=== PATIENT | female | born 1950 | race Caucasian/White ===

== ENCOUNTER → 2017-02-08 | Outpatient (CLI) | payer MEDICARE ==
[~2017-02-08] MED LIST: KLON0.5T PO; PANT40TA2 PO; PROP80TA PO; SERT25TA PO
--- NOTE | 2017-02-08 11:46 | REP ---
Clinical: Follow up left adnexal lesion. Comparison: CT report dated Technique: Transabdominal pelvic ultrasound followed by transvaginal examination for better evaluation of the adnexa. Findings: The patient is noted to be status post hysterectomy and right oophorectomy. Left left adnexal structure measures 4.4 x 2.4 x 2.8 cm and may represent ovary with complex cyst versus mass. Bladder is unremarkable and currently measures 6.3 x 4.5 x 4.8 cm. No pelvic fluid. Impression: Limited examination demonstrates a complex cystic structure in the left adnexa measuring 4.4 x 2.4 x 2.8 cm likely representing ovary although mass lesion cannot be excluded. Consider follow-up CT with contrast for more definitive evaluation.
== END ==
LOC: M WHC 08:28
PROVIDERS: ATTEND Internal Medicine
DX: N94.89 Other specified conditions associated with female genital organs and menstrual cycle (principal)

== ENCOUNTER → 2017-03-02 | Outpatient (REF) | payer MEDICARE | LOC: M LAB REF 12:09 | PROVIDERS: ATTEND Internal Medicine | DX: R50.9 Fever, unspecified (principal); R31.9 Hematuria, unspecified ==

== ENCOUNTER 2017-03-04 08:27 | Day surgery (SDC) | payer MEDICARE ==
--- NOTE | 2017-03-03 09:02 | CR ---
DATE OF CONSULTATION: 03/02/[address] Osorio: Thank you for asking me to see Ms. Amirah Mosquera in consultation prior to her cystectomy. Ms. Mosquera is as you know a 66-year-old female past medical history of hypertension, anxiety, palpitations, who was incidentally found during a bout of diverticulitis to have an adnexal cyst. The patient reports some persistent left lower quadrant pain intermittently in nature, overall tolerable. She also reports two episodes since she last saw me of shaking. They occurred about 10 days apart. They started with nausea, developed to shaking chills and then a temperature as high as 101.7. She reports they did not last over 1 hour. She has felt well since the last bout which was 5 days ago. The patient admits that she has been more anxious. She is taking her Klonopin twice a day, looking forward to getting surgery over. She is compliant with her sertraline. She is on propranolol and does not feels that her palpitations are any worse. The patient does have recent history of diverticulitis. Bowels are back to normal. Appetite is good but she and her are trying to restrict diet with portion control and are successfully losing some weight. The patient has known osteoarthritis (OA), degenerative joint disease (DJD), intermittently flares, is presently stable. Patient has history of recurrent bronchitis uses bronchodilators. She has not needed any recently. Patient has history of gastroesophageal reflux disease (GERD). She is on pantoprazole with good control of symptoms. The patient is just recently at full activity after recent bout of diverticulitis but denies any chest pain, palpitations, syncope or presyncope. PAST MEDICAL HISTORY: 1. Anxiety/panic 2. Hysterectomy with reported right oophorectomy 1979 secondary to fibroids. 3. G2, P2. 4. Appendectomy. 5. Right shoulder lipoma excisions 1982 and 1994. 6. Osteoarthritis, degenerative joint disease left knee and lumbosacral spine with sciatica in 2012 symptomatically relieved after three epidural injections. 7. Palpitations controlled on beta blockers. 8. Irritable bowel syndrome (IBS). 9. Gastroesophageal reflux disease (GERD) per upper GI 08/1998. 10. Pulmonary nodules stable between 2004 and 2014. No further imaging felt necessary. 11. Biliary sludge per ultrasound 09/12. 12. Fatty liver. 13. Asthma / recurrent bronchitis. Pulmonary consultation 2004. 14. Vitamin D deficiency. 15. Degenerative valve disease per echo 07/11/2012. 16. Hyperglycemia. 17. Hypertension. 18. Hyperlipidemia 19. Grajeda's palsy 2015. 20. Diverticulitis 2017. 21. Essential tremor. PATIENT'S MEDICATIONS: She is on: - albuterol nebulizer as needed - Aleve 220 mg one by mouth twice daily as needed on hold for 1 week - Anusol as needed - Aspercreme as needed - baby aspirin daily but this is been on hold for a week - calcium twice daily - clobetasol as needed dermatitis - ibuprofen also on hold for a week - clonazepam 0.5 mg half to one twice daily - magnesium 250 mg daily at bedtime - meclizine as needed - Zofran as needed - pantoprazole 40 mg daily - ProAir as needed - probiotic daily - propranolol ER 80 mg at bedtime - sertraline 25 mg by mouth twice daily - Tylenol as needed - vitamin D3 5000 international units daily - Voltaren gel as needed - Zyrtec allergy daily DRUG ALLERGIES: None but she has had adverse reaction to Wellbutrin, Flonase, imipramine, Zoloft, citalopram, baclofen and pravastatin. SOCIAL HISTORY: Never smoked, rarely drinks alcohol. FAMILY HISTORY: Father had chronic obstructive pulmonary disease (COPD), congestive heart failure (CHF), hypertension and of lung cancer at 82. Mother of multiple myeloma at 74. Brother from leukemia at 66. Another brother had HIV infection. A sister had heart attack at 65. Grandparents had heart disease, diabetes and cancer. PHYSICAL EXAMINATION: Overweight female in no acute distress. Vital signs: Her blood pressure 156/68, recheck 112/60, heart rate 63. Her weight is 208, O2 sat after exertion 91%. Her body mass index (BMI) is 35. HEENT: Head is normocephalic. Neck is supple. Pupils equal, reactive to light. She does wear eyeglasses. She has scant amount of cerumen bilaterally. There is no thyromegaly, jugular venous distention (JVD) or carotid bruits. Respiratory: Clear to auscultation, resonant to percussion. Cardiovascular: Regular rate and rhythm. She does have a 3/6 systolic murmur. Breasts: Exam deferred. Abdomen: Normoactive bowel sounds, soft, nontender. No hepatosplenomegaly. Extremities: No cyanosis, clubbing or edema. Dermatologic: No new rashes, bruises. Neurologic: Alert and oriented times three. LABORATORY DATA: Normal CBC, med profile significant for a glomerular filtration rate of 45, normal liver panel, ESR slightly elevated at 24. UA: No significant pathology. Last thyroid 02/11/2017 within normal limits. IMPRESSION: Ms. Amirah Mosquera is a 66-year-old female with past medical history of hypertension, hyperglycemia, hyperlipidemia, age and family history has no signs or symptoms indicative of cardiovascular ischemia and is felt to be at low risk for cardiovascular complications from the proposed surgical intervention which can be further minimized by the followin. Hypertension. Take propranolol as usual the evening prior to surgery. 2. Hyperglycemia. Dietary advice only. 3. Hyperlipidemia. She has been intolerant of statins. When more stable will readdress. 4. Anxiety. She will take her clonazepam and sertraline the morning of surgery. 5. Gastroesophageal reflux disease. She will take her pantoprazole morning of surgery. 6. Palpitations. She will take her propranolol the evening prior to surgery. 7. Essential tremor. She will take the propranolol the evening prior to surgery. 8. Recent diverticulitis clinically cleared, still appears to be having some residual symptoms but CBC, ESR not significantly elevated and clinically she is completely asymptomatic today. Thank you very much for this consultation. Please call with questions or concerns.
[~2017-03-04] VITALS: Ht 167.6 cm; Wt 94.8 kg
[~2017-03-04 08:27] MED LIST changes: +KETOROLAC 60 MG/2 ML VIAL (J1885) As Ordered ONE; +LIDOCAINE 2% INJ 100 MG/5 ML SDV (FOR ANES.) As Ordered ONE; +ONDANSETRON 4MG/2ML VIAL (J2405) As Ordered ONE; +PROPOFOL 200 MG/20 ML VIAL As Ordered ONE; +ROCURONIUM BROMIDE 50 MG/5 ML VIAL/SYRINGE As Ordered ONE; +dexameTHASONE 4 MG/ML 1ML VIAL (J1100) As Ordered ONE
[2017-03-04] MEDS ORDERED: LIDOCAINE 1% SDV 5 ML VIAL SQ ONE (09:00)
[2017-03-04] MEDS ORDERED: LR 1,000 ML IV SCH ×2 (09:00→14:30)
[2017-03-04] MEDS ORDERED: LR 1,000 ML IV ONE (09:00)
[2017-03-04] MEDS ORDERED: ROCURONIUM BROMIDE 50 MG/5 ML VIAL/SYRINGE As Ordered ONE ×2 (11:06→13:11)
[2017-03-04] MEDS ORDERED: fentaNYL 250 MCG/5 ML INJECTION (J3010) As Ordered ONE (11:06)
[2017-03-04] MEDS ORDERED: MIDAZOLAM INJ 2 MG/2 ML VIAL (J2250) As Ordered ONE (11:06)
[2017-03-04] MEDS ORDERED: SUGAMMADEX SODIUM 500 MG/5 ML VIAL (BRIDION) As Ordered ONE (13:39)
[2017-03-04] MEDS ORDERED: HYDROmorphone HCL 2 MG/ML 1ML VIAL (J1170) As Ordered ONE (13:39)
[2017-03-04] MEDS ORDERED: ePHEDrine SULFATE 25 MG/5 ML(5MG/ML) SYRINGE As Ordered ONE (13:42)
[2017-03-04] MEDS ORDERED: METOCLOPRAMIDE INJ 10MG/2ML VIAL (J2765) As Ordered ONE (14:21)
[2017-03-04] MEDS ORDERED: IBUPROFEN 600 MG TAB PO PRN (14:30)
[2017-03-04] MEDS ORDERED: METOCLOPRAMIDE INJ 10MG/2ML VIAL (J2765) IV PRN (14:30)
[2017-03-04] MEDS ORDERED: PERCOCET 5MG/325MG TAB PO PRN (14:30)
[2017-03-04] MEDS ORDERED: ALBUTEROL 6.7GM INHALER **FOR ANES. CART/OMNICELL ONLY As Ordered ONE (14:30)
[2017-03-04] MEDS ORDERED: ONDANSETRON 4MG/2ML VIAL (J2405) IV PRN (14:30)
[2017-03-04] MEDS ORDERED: fentaNYL 100 MCG/2 ML INJECTION (J3010) IV PRN (14:30)
[2017-03-04] MEDS ORDERED: MEPERIDINE INJ 25 MG/ML VIAL (J2175) IV PRN (14:30)
[2017-03-04] MEDS ORDERED: NORCO, ANEXSIA 5/325MG TABLET (HYDROcodone/ACETAMINOPHEN) PO PRN (14:30)
[2017-03-04] MEDS ORDERED: PROMETHAZINE INJ 25 MG/ML VIAL (J2550) IV PRN ×2 (15:15→17:15)
[2017-03-04] MEDS ORDERED: LR 500 ML IV SCH (15:15)
[2017-03-04] MEDS ORDERED: ALBUTEROL 90 MCG/ACT 8GM HFA INHALER INH PRN (17:15)
[2017-03-04 18:45] VITALS: BP 148/71
[2017-03-04] MEDS ORDERED: PROPRANOLOL 80 MG LA CAP PO SCH (21:00)
[2017-03-04 21:50] VITALS: BP 130/70
[2017-03-04] MEDS: LR 1,000 ML IV SCH (21:50)
[2017-03-04] MEDS: SERTRALINE HCL 25 MG TABLET PO SCH (21:50)
[2017-03-04 22:00] VITALS: BP 130/77
[2017-03-05] VITALS: BP 125/61
[2017-03-05 04:00] VITALS: BP 125/63
[2017-03-05] MEDS: LR 1,000 ML IV SCH ×2 (05:24→06:30)
[2017-03-05 06:30] LABS: MEAN CORPUSCULAR HEMOGLOBIN 29.1 pg (27.0-33.0); MEAN CORPUSCULAR HGB CONC 33.5 g/dl (32.0-36.5); MEAN CORPUSCULAR VOLUME 86.8 fl (80.0-96.0); RED CELL DISTRIBUTION WIDTH 13.2 % (11.5-14.5); WHITE BLOOD COUNT 14.1 K/mm3 (4.0-10.0)
[2017-03-05] MEDS: SERTRALINE HCL 25 MG TABLET PO SCH (08:38)
[2017-03-05] MEDS ORDERED: CETIRIZINE (ZyrTEC) 10 MG TAB PO SCH (09:00)
[2017-03-05] MEDS ORDERED: PANTOPRAZOLE 40MG TAB (PROTONIX) PO SCH (09:00)
[2017-03-05 10:00] VITALS: BP 130/76
--- NOTE | 2017-03-06 07:37 | RO ---
DATE OF PROCEDURE: 03/04/2017 PREOPERATIVE DIAGNOSIS: Growing left ovarian cyst. POSTOPERATIVE DIAGNOSIS: Left ovarian remnant with tiny cyst and extensive involved adhesions, likely related to the patient's diverticular disease. PROCEDURE: Laparoscopic lysis of extensive marked and considerably more involved than usual adhesions and removal of left ovarian remnant and cyst, which drained when we removed it. SURGEON: Dr. Sofi Osorio SITE ACQUISITION MANAGER: None. ANESTHESIA: General endotracheal anesthesia. DESCRIPTION OF PROCEDURE: Amirah was brought to the operating room where sufficient general endotracheal anesthesia was induced, and she was prepped, draped and positioned in the usual sterile fashion. We put a Sanchez in for backfilling because we knew she had a history of diverticular disease and some evidence of adhesions, and she had already taken some Pyridium and had taken a little bit extra antibiotic to protect the bowel. A sponge on a stick was placed. The patient is already status post hysterectomy, which is reported as hysterectomy and right salpingo-oophorectomy. We then turned our attention to the umbilicus with a transverse semilunar incision made below the umbilicus. Sharp and blunt dissection continued through the subcutaneous tissues to the level of the rectus fascia, which was transversely incised, secured with #0 Vicryl retention sutures and the peritoneum entered under direct visualization, and the Antonio cannula placed in an open laparoscopic technique. Visualization of the peritoneum showed that there were extensive involved omental adhesions and bowel adhesions. Even just the smooth manipulator caused portions of bowel to just sort of fall off their adhesions with little circular adhesions to other things, which really looked quite distinctly diverticular. Also, the omentum is flatly adherent to the anterior abdominal wall. Initially, we backfilled the bladder and moved the vaginal manipulator and could not even see them, so with careful dissection through the operative scope through the umbilical port, we were able to get a window on the appropriate side of the omentum, without injuring bowel, in the right upper quadrant. Working with the scope through that, we were able to take down, very carefully and tediously, the omentum, using the Enseal and at times a grasper through the umbilical port and finally we were able to free the vast majority of that. There was still a small amount of omentum adherent to the anterior abdominal wall in the right lower quadrant, and there was some omentum adherent to the peritoneum just to the right of midline cephalad to the bladder. There are pictures of all that dissection taken. We then very carefully using cold scissors as appropriate, using the Enseal as needed, continued the dissection to get to the left pelvic sidewall. There were several loops of bowel adherent there, and these we just took down with cold scissors and using the suction professional healthcare representative, tried to visualize that area, and, of course, using the graspers to very gently give slight traction so we could get down to appropriate area. Could not initially see any ovary. We were, having freed that up and using the backfilling in the bladder to get enough of the omentum off, able to identify the location of the bladder. We could clearly see the pelvic inlet at the pelvic brim, and so we had an idea where the infundibulopelvic ligament for the ovary had to start. We carefully dissected that area free and encountered a very small ovarian remnant just under some dense, dense intestinal adhesions that we just had to take down millimeter by millimeter in this region. Then, having found this little area that appeared to be ovarian remnant, we were then able to elevate that and continue to dissect off the bowel. We did find a small, maybe 1 or 2 cm cystic lesion. This ruptured as we dissected it out. I do not think there is any significant portion of tube, and there is just a tiny area of ovary-like tissue. Having finally freed this, we very carefully moved the bowel far enough away to use the Enseal to free this from the sidewall. We did not have any evidence of the Pyridium that the patient had taken or evidence that we had injured ureter. In fact, the ovary, if anything, was adherent a little higher on the sidewall and they sometimes are, so we did not have any evidence of ureteral injury. The bowel was very inflamed with this continued evidence of diverticular disease, but that was present before the start of the case. We were able to free up this tissue, it was tiny; we were able to just pull it out with the scope and there was no other tissue there. We had to sort of go extraperitoneally in some areas to keep the bowel protected, but, again, there was no evidence of ureteral injury. There was no other persistent ovarian tissue that we could identify, and we went ahead and ended the case, let the CO2 escape, removed the instruments, closed the fascial wounds in the right upper quadrant and the umbilicus with #0 Vicryl at the fascia and then #3-0 Vicryl. There was a left-sided 5 mm port, my mistake for not dictating that earlier, and the skin at all three wounds was closed with #3-0 Vicryl in a subcuticular stitch and dry sterile dressings were then applied. Estimated blood loss for the procedure: Maybe 25 mL. Fluid replacement was crystalloid. Complications: None but she did have an unusually marked amount of adhesions, and that was primarily the main work of the case. Condition and Disposition: Amirah tolerated the procedure well and was recovering in the recovery room in good condition.
== END 2017-03-05 11:00 | disposition home or self-care (01) ==
LOC: M SDC 08:27 → M MS5PR 18:30 → M SDC 03-05 11:00
PROVIDERS: ATTEND Obstetrics & Gynecology
DX: N83.202 Unspecified ovarian cyst, left side (principal); K57.32 Diverticulitis of large intestine without perforation or abscess without bleeding; R25.1 Tremor, unspecified; R01.1 Cardiac murmur, unspecified; K21.9 Gastro-esophageal reflux disease without esophagitis; M12.9 Arthropathy, unspecified; M54.9 Dorsalgia, unspecified; F41.9 Anxiety disorder, unspecified; Z79.899 Other long term (current) drug therapy; Z90.710 Acquired absence of both cervix and uterus; Z78.0 Asymptomatic menopausal state; Z98.51 Tubal ligation status
CPT/HCPCS: 36415; 58660; 58661; 85027; 88305; 96374; 96375; J1100; J1885; J2250; J2405; J2765; J3010

== ENCOUNTER → 2017-03-08 | Outpatient (REF) | payer MEDICARE ==
[~2017-03-08] MED LIST changes: -KETOROLAC 60 MG/2 ML VIAL (J1885) As Ordered ONE; -LIDOCAINE 2% INJ 100 MG/5 ML SDV (FOR ANES.) As Ordered ONE; -ONDANSETRON 4MG/2ML VIAL (J2405) As Ordered ONE; -PROPOFOL 200 MG/20 ML VIAL As Ordered ONE; -ROCURONIUM BROMIDE 50 MG/5 ML VIAL/SYRINGE As Ordered ONE; -dexameTHASONE 4 MG/ML 1ML VIAL (J1100) As Ordered ONE
== END ==
LOC: M LAB REF 18:03
PROVIDERS: ATTEND Internal Medicine
DX: M25.50 Pain in unspecified joint (principal)

== ENCOUNTER → 2017-06-25 | Outpatient (CLI) | payer MEDICARE ==
--- NOTE | 2017-06-25 11:23 | REPMRS ---
Patient History The patient states she had a clinical breast exam in Patient is postmenopausal. Family history of breast cancer in maternal aunt at age 50 or over. Digital Woman Screen Mammo: June 25, 2017 - Exam #: [id number] Bilateral CC and MLO view(s) were taken. Technologist: Victoria Serrano, Technologist Prior study comparison: June 09, 2016, bilateral digital mammo screening bilat, performed at [facility]. June 13, 2015, left breast digital mammo diagnostic unilateral, performed at [facility]. FINDINGS: There are scattered fibroglandular densities. There is a fairly symmetric fibroglandular pattern in both breasts. There has been no interval development of masses, areas of architectural distortion or clusters of microcalcifications typical of malignancy. ASSESSMENT: BI-RADS/ACR category 2 mammogram. Benign finding(s). Recommendation Routine screening mammogram of both breasts in 1 year (for women over age 40). This mammogram was interpreted with the aid of an FDA-approved computer-aided dectection system. Electronically Signed By: Wisam Phillips MD 06/25/17 1120
== END ==
LOC: M WHC 09:45
PROVIDERS: ATTEND Internal Medicine
DX: Z12.31 Encounter for screening mammogram for malignant neoplasm of breast (principal); Z78.0 Asymptomatic menopausal state

== ENCOUNTER → 2017-11-23 | Outpatient (CLI) | payer MEDICARE | LOC: M WUC 16:00 | DX: M25.78 Osteophyte, vertebrae (principal); M12.88 Other specific arthropathies, not elsewhere classified, other specified site; M43.16 Spondylolisthesis, lumbar region; M54.31 Sciatica, right side | CPT/HCPCS: 72110 ==

== ENCOUNTER → 2018-03-14 | Outpatient (CLI) | payer MEDICARE | LOC: M SLEEP HO 12:33 | DX: G47.33 Obstructive sleep apnea (adult) (pediatric) (principal) ==

== ENCOUNTER → 2018-03-30 | Outpatient (CLI) | payer MEDICARE | LOC: M SLEEP 19:42 | DX: G47.33 Obstructive sleep apnea (adult) (pediatric) (principal) | CPT/HCPCS: 95811 ==

== ENCOUNTER → 2018-06-27 | Outpatient (CLI) | payer MEDICARE | LOC: M WHC 10:30 | DX: Z12.31 Encounter for screening mammogram for malignant neoplasm of breast (principal); M85.80 Other specified disorders of bone density and structure, unspecified site; Z78.0 Asymptomatic menopausal state; Z92.89 Personal history of other medical treatment | CPT/HCPCS: 77067 ==

== ENCOUNTER → 2019-05-10 | Outpatient (CLI) | payer MEDICARE ==
[~2019-05-10] MED LIST changes: -PANT40TA2 PO; +PANT40TA3 PO; -SERT25TA PO; +SERT25TA85 PO
--- NOTE | 2019-05-10 13:46 | REP ---
Chest x-ray: Two views. History: Short of breath. Findings: The lungs are well inflated and clear. The pleural angles are sharp. Heart size is normal. Pulmonary vasculature is not increased. The thoracic aorta somewhat tortuous. There are mild degenerative changes in the thoracic spine. Impression: No active disease. No infiltrate seen. Electronically Signed by Collin Wagner MD 05/10/2019 01:38 P
== END ==
LOC: M WUC 10:54
PROVIDERS: ATTEND Internal Medicine
DX: R06.02 Shortness of breath (principal)

== ENCOUNTER → 2019-07-03 | Outpatient (CLI) | payer MEDICARE ==
--- NOTE | 2019-07-03 15:38 | REPMRS ---
Patient History The patient states she had a clinical breast exam in 2018.Family history of breast cancer at age 50 or over in maternal aunt. Benign lumpectomy of the right breast. No Hormone Replacement Therapy 3D TOMOSYNTHESIS WAS PERFORMED. [facility] lifetime risk for breast cancer is 6.4%. Digital Woman Screen Mammo: July 03, 2019 - Exam #: [id number] Bilateral CC and MLO view(s) were taken. Technologist: Adrienne Maria, Technologist Prior study comparison: June 27, 2018, bilateral digital woman screen mammo performed at [facility]. June 25, 2017, digital woman screen mammo performed at [facility]. FINDINGS: There are scattered fibroglandular densities. There has been no change in the appearance of the mammogram from the prior studies. There is a mild amount of residual fibroglandular tissue which is fairly symmetric. There is no interval development of dominant mass, architectural distortion, or clustered microcalcification suggestive of malignancy. Assessment: BI-RADS/ACR category 1 mammogram. Negative Mammogram. Recommendation Routine screening mammogram in 1 year (for women over age 40). This mammogram was interpreted with the aid of an FDA-approved computer-aided dectection system. Electronically Signed By: Wisam Phillips MD 07/03/19 0441
== END ==
LOC: M WHC 14:20
PROVIDERS: ATTEND Internal Medicine
DX: Z12.31 Encounter for screening mammogram for malignant neoplasm of breast (principal); Z80.3 Family history of malignant neoplasm of breast

== ENCOUNTER → 2020-01-29 | Outpatient (CLI) | payer MEDICARE ==
--- NOTE | 2020-01-29 13:04 | REP ---
LUMBAR SPINE SERIES: Five views. HISTORY: Pain. COMPARISON STUDY: November 23, 2017. FINDINGS: Five views of the lumbar spine demonstrate a dextroconvex lumbar curvature. Degenerative spondylosis changes are noted. Lumbar vertebral body heights are preserved. There is vacuum phenomenon in the narrowed L5-S1, L4-5, and L3-4 discs. Degenerative disc narrowing is seen at L2-3 as well. Anterior osteophyte formation is seen at these levels. There is sclerosis and hypertrophy of the facets at L4-5 and L5-S1 bilaterally. Sacrum and SI joints are intact. These findings are unchanged when compared with the November 23, 2017 study. IMPRESSION: Degenerative spondylosis changes. Stable exam from comparison study. Electronically Signed by Collin Wagner MD 01/29/2020 05:04 P
== END ==
LOC: M WUC 09:57
PROVIDERS: ATTEND Internal Medicine
DX: M54.5 Low back pain (principal); M47.816 Spondylosis without myelopathy or radiculopathy, lumbar region

== ENCOUNTER → 2020-06-03 | Outpatient (CLI) | payer MEDICARE ==
[~2020-06-03] MED LIST changes: +PANT40TA29 PO; -PANT40TA3 PO
--- NOTE | 2020-06-06 00:06 | ECWPNPC ---
PATIENT NAME: KATH HUMPHREYS : 1950 GENDER: FEMALE VISIT DATE: 06/03/2020 DISCHARGE DATE: 06/03/20937 VISIT LOCKED DATE TIME: PHYSICIAN: BOB WESTBROOK RESOURCE: BOB WESTBROOK REASON FOR APPOINTMENT 1. BACK HISTORY OF PRESENT ILLNESS GENERAL: 70 Y/O FEMALE REFERRED BY PRIMARY CARE,DR HAWKINS,TO EVALUATE CHRONIC LOW BACK PAIN.LONG HISTORY OF CHRONIC LOW BACK PAIN.PAIN IS LOCATED ACROSS LOW BACK WITH RADIATION INTO LEFT BUTTOCK.HAS HAD RECENT XRAY OF LEFT HIP PER DR HAWKINS ORDER AND HAS APPOINTMENT TO HAVE THIS REVIEWED TODAY.PAIN IS AGGREVATED BY GOING FROM SITTING TO STANDING.HAS TRIALED CHIROPRACTIC AND MASSAGE THERAPY OVER THE YEARS WITH SOME TEMPORARY IMPROVEMENT.LOOKING FOR ALTERNATIVES TO TREAT PAIN.DENIES RECENT ILLNESS OR WEIGHT LOSS.DENIES BOWEL OR BLADDER INCONTINENCE. - - -. FALL RISK SCREENING: SCREENING :NO FALLS REPORTED IN THE LAST YEAR PAIN SCREENING: PATIENT HAS A COMPLAINT OF ACUTE OR CHRONIC PAIN :YES LOCATION OF PAIN:LOW BACK, LEFT HIP INTENSITY OF PAIN (SCALE OF 1 TO 10):8 WHAT DOES YOUR PAIN FEEL LIKE:CONTINOUS, THROBBING DURATION: SITTING IT STOPS" PAIN IS INCREASED BY:ACTIVITIES, PROLONGED STANDING PAIN IS DECREASED BY:SITTING NURSING NOTE: - - -. PAIN CENTER INTAKE QUESTIONS: DO YOU HAVE A HISTORY OF MRSA? :NO DO YOU TAKE A BLOOD THINNERS? :NO DO YOU HAVE ANY BLEEDING DISORDERS? :NO ANY NEW NUMBNESS OR WEAKNESS IN YOUR LEGS OR ARMS? :NO ANY PACEMAKER,DEFIBRILLATOR, OR DORSAL COLUMN STIMULATOR? :NO DO YOU HAVE ANY RASHES OR OPEN SORES? :NO ARE YOU ALLERGIC TO IV DYE? :NO ARE YOU DIABETIC? :NO ANY NEW PROBLEMS WITH YOUR MEDICATIONS? :NO HAVE YOU RECEIVED A VACCINE IN THE PAST 30 DAYS? :NO DO YOU PLAN TO RECEIVE A VACCINE IN THE NEXT 21 DAYS? :NO DO YOU NEED ANY PRESCRIPTION? :NO DO YOU TAKE ANY IMMUNOSUPPRESSIVE MEDICATIONS? :NO CURRENT MEDICATIONS TAKING BUSPIRONE HCL 15 MG TABLET 1 TABLET ORALLY TWICE A DAY TAKING KLONOPIN 0.5 MG TABLET 1 TABLET AT BEDTIME ORALLY BID TAKING PROPRANOLOL HCL ER 60 MG CAPSULE EXTENDED RELEASE 1 CAPSULE ORALLY ONCE A DAY TAKING PANTOPRAZOLE SODIUM 20 MG TABLET DELAYED RELEASE 1 TABLET ORALLY ONCE A DAY TAKING SERTRALINE HCL 25 MG TABLET 1 TABLET ORALLY BID TAKING TYLENOL 8 HOUR 650 MG TABLET EXTENDED RELEASE 2 TABLETS NEEDED ORALLY EVERY 8 HRS TAKING VITAMIN D 1000 UNIT CAPSULE 1 CAPSULE ORALLY ONCE A DAY MEDICATION LIST REVIEWED AND RECONCILED WITH THE PATIENT PAST MEDICAL HISTORY PANIC ATTACKS/ ANXIEYY CHRONIC PAIN GERD OSTEO ARTHRITIS SLEEP APNEA ALLERGIES N.K.D.A. SURGICAL HISTORY C SECTION 1971 1973 TOTAL HYSTERECTOMY REMOVAL OF LIPOMAS FAMILY HISTORY FATHER: 85 YRS, DIAGNOSED WITH HYPERTENSION MOTHER: 72 YRS SON(S): ALIVE DAUGHTER(S): ALIVE MOTHER OF MULTIPLE MYLOMA. SOCIAL HISTORY GENERAL: TOBACCO USE ARE YOU A:NONSMOKER LATEX QUESTIONNAIRE LATEX ALLERGY : HAVE YOU EVER DEVELOPED ANY TYPE OF REACTION AFTER HANDLING LATEX PRODUCTS SUCH RUBBER GLOVES, CONDOMS, DIAPHRAGMS, BALLOONS, SOCKS, OR UNDERWEAR?NO ALCOHOL SCREENING DID YOU HAVE A DRINK CONTAINING ALCOHOL IN THE PAST YEAR?YES HOW OFTEN DID YOU HAVE A DRINK CONTAINING ALCOHOL IN THE PAST YEAR?TWO TO FOUR TIMES A MONTH (2 POINTS) HOW MANY DRINKS DID YOU HAVE ON A TYPICAL DAY WHEN YOU WERE DRINKING IN THE PAST YEAR?1 OR 2 (0 POINTS) POINTS2 INTERPRETATIONNEGATIVE RECREATIONAL DRUG USE DRUG USE?NO PATIENT DENIES ABUSE OR MISSUSED OF ANY MEDICATION DENIES ANY PAST HISTORY OR CURRENT USE OF RECREATIONAL DRUG USE CAFFEINE CAFFEINE USE?YES HOW OFTEN AND HOW MUCH? 1/DAY AMISH AMISH [employer] LANGUAGE LANGUAGES SPOKEN:SLOVENIAN EDUCATION LEVEL OF EDUCATION:HIGH SCHOOL LEARNING BARRIERS / SPECIAL NEEDS BARRIERS TO LEARNING? 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 HOSPITALIZATION/MAJOR DIAGNOSTIC PROCEDURE NO HOSPITALIZATION HISTORY. REVIEW OF SYSTEMS CONSTITUTIONAL: ANY RECENT FEVER NO . CHILLS NO . WEIGHT CHANGE OF UNKNOWN REASONS NO . MUSCULOSKELETAL: ANY UNUSUAL JOINT PAIN OR SWELLING NOT MENTIONED NO . SYSTEMIC LUPUS NO . ANY NEUROMUSCULAR DISORDER NOT MENTIONED NO . LYME DISEASE NO . GASTROENTEROLOGY: ANY NEW CHANGE IN BOWEL CONTROL? NO . HISTORY OF LIVER DISORDER NOT MENTIONED NO . HISTORY OF UNUSUAL ABDOMINAL PAIN OR CRAMPING NOT MENTIONED NO . NO CONSTIPATION. GENITOURINARY: ANY NEW CHANGE IN BLADDER CONTROL? NO . ANY RENAL/KIDNEY CONDITON NOT MENTIONED NO . NEUROLOGY: HISTORY OF TBI NOT MENTIONED NO . OTHER NEW NUMBNESS OR PAIN PATTERNS NOT MENTIONED NO . NEW ONSET DIZZINESS OR NEUROLOGICAL CHANGES NOT MENTIONED NO . HISTORY OF SEVERE HEADACHES NOT MENTIONED NO . HISTORY OF STROKE OR NEUROLOGICAL DISORDER NOT MENTIONED NO . CARDIOLOGY: HEART SURGERY NO . CONGESTIVE HEART FAILURE/FLUID OVERLOAD NOT MENTIONED NO . HISTORY OF CHEST PAIN,IRREGULAR HEART BEAT NOT MENTIONED NO . RESPIRATORY: SHORTNESS OF BREATH ON EXERTION, WHEEZES, UNUSUAL COUGH NOT MENTIONED NO . ENDOCRINOLOGY: ADRENAL GLAND OR THYROID DISORDERS NOT MENTIONED NO . UNUSUAL URINATION, DIZZINESS OR LETHARGY NOT MENTIONED NO . EXAMINATION GENERAL EXAMINATION: GENERALNO ACUTE DISTRESS, WELL NOURISHED AND HYDRATED. PSYCHAPPROPRIATE MOOD AND AFFECT . FACE:UNREMARKABLE. NECK:NO LYMPHADENOPATHY, SUPPLE, . LUNGS:CLEAR TO AUSCULTATION BILATERALLY, NO WHEEZES, RHONCHI, RALES. HEART:NO MURMURS, REGULAR RATE AND RHYTHM. LUMBAR: MUSCLE STRENGTH TESTING 5/5 BILATERAL LOWER EXTREMITIES POSITIVE SIJ TENDERNESS BILATERALLY. ASSESSMENTS SACROILIAC JOINT PAIN - M53.3 (PRIMARY) TREATMENT SACROILIAC JOINT PAIN [facility] MRI LUMBAR W/O CONTRAST (CPT 05921)[id number] PROCEDURE CODES FA211 ESTABILISHED PATIENT [facility] CHARGE DISPOSITION & COMMUNICATION FOLLOW UP 6 WEEKS (REASON: REVIEW MRI L/S SPINE) ELECTRONICALLY SIGNED BY SHIMA JUAREZ ON 06/05/2020 AT 02:40 PM EDT DISCLAIMER : THIS IS A VISIT SUMMARY EXTRACTED FROM THE [facility] CHART. IT IS NOT A COPY OF THE [facility] PROGRESS NOTE. IVÁN
== END ==
LOC: M PAIN 08:30
PROVIDERS: ATTEND Nurse Practitioner Family
DX: M53.3 Sacrococcygeal disorders, not elsewhere classified (principal); F41.0 Panic disorder [episodic paroxysmal anxiety]; G89.29 Other chronic pain; K21.9 Gastro-esophageal reflux disease without esophagitis; G47.30 Sleep apnea, unspecified; Z79.899 Other long term (current) drug therapy

== ENCOUNTER → 2020-06-12 | Outpatient (CLI) | payer MEDICARE ==
--- NOTE | 2020-06-12 09:59 | REPMRS ---
Patient History The patient states she had a clinical breast exam in May 2020. Family history of breast cancer at age 50 or over in maternal aunt. Benign lumpectomy of the right breast. No Hormone Replacement Therapy 3D TOMOSYNTHESIS WAS PERFORMED. [facility] lifetime risk for breast cancer is 6.1%. Volpara breast density a. Digital Woman Screen Mammo: June 12, 2020 - Exam #: [id number] Bilateral CC and MLO view(s) were taken. Technologist: RT Alex Prior study comparison: July 03, 2019, bilateral digital woman screen mammo performed at [facility]. June 27, 2018, bilateral digital woman screen mammo performed at [facility]. FINDINGS: There are scattered fibroglandular densities. There has been no change in the appearance of the mammogram from the prior studies. There is a mild amount of residual fibroglandular tissue which is fairly symmetric. There is no interval development of dominant mass, architectural distortion, or clustered microcalcification suggestive of malignancy. Assessment: BI-RADS/ACR category 1 mammogram. Negative Mammogram. Recommendation Routine screening mammogram in 1 year (for women over age 40). This mammogram was interpreted with the aid of an FDA-approved computer-aided dectection system. Electronically Signed By: Wisam Phillips MD 06/12/20 0958
== END ==
LOC: M WHC 08:24
PROVIDERS: ATTEND Internal Medicine
DX: Z12.31 Encounter for screening mammogram for malignant neoplasm of breast (principal)

== ENCOUNTER → 2020-06-13 | Outpatient (CLI) | payer MEDICARE ==
--- NOTE | 2020-06-13 12:46 | REP ---
INDICATION: SACROILIAC JOINT PAIN FILE ROOM. COMPARISON: Comparison MRI study May 30, 2013. Comparison radiographs January 29, 2020.. TECHNIQUE: Sagittal and axial T1 and T2-weighted scans are acquired in the usual fashion with and without fat saturation. Sequences include spin echo, turbo spin-echo, and STIR imaging sequences. FINDINGS: There is some straightening of the normal lumbar lordosis. Vertebral body heights are preserved. There are reactive marrow changes associated with degenerative disc disease at each level from L2 through L5. The tip of the conus medullaris is normal in position and appearance at the T12-L1. No extra vertebral abnormality is appreciated. Axial and sagittal images at the L1-L2 level demonstrate mild diffuse disc bulging indenting the ventral margin of the thecal sac. There is no spinal stenosis. No foraminal narrowing is seen. At L2-L3, there is a degenerative disc disease with disc space narrowing. A left posterior and left foraminal disc protrusion is noted indenting the left ventral margin of the thecal sac and contributing to mild neural foraminal narrowing on the left. This contacts the exiting left lumbar root. No spinal stenosis. At L3-L4, there is degenerative disc narrowing. A disc osteophyte complex is seen in the left posterior and left foraminal region producing neural foraminal narrowing on the left. At L4-5, there is degenerative disc disease. Diffuse posterior disc bulging and osteophytic ridging is seen. In combination with ligamentum flavum and facet hypertrophy, there is mild to moderate central canal stenosis at L4-5. There is right-sided neural foraminal narrowing from facet hypertrophy and discogenic spurring. There is some facet hypertrophy encroaching on the left neural foramen. The midline AP dimension of the thecal sac at L4-5 is 11.6 mm. There is right to left thecal sac narrowing from facet and ligamentum flavum hypertrophy. At L5-S1, there is facet hypertrophy as well. Diffuse disc bulging and osteophytic ridging is seen. There is right-sided neural foraminal narrowing due to discogenic spurring and facet hypertrophy mild in degree. IMPRESSION: Multilevel degenerative disc and osteoarthritic facet disease. Dominant abnormality is mild to moderate central canal stenosis at L4-5. There are left posterior and left foraminal disc protrusions at L3-4 and L2-3. Right-sided foraminal narrowing is noted at L5-S1. <Electronically signed by Juan Wagner > 06/13/20 0758
== END ==
LOC: M RAD 10:27
PROVIDERS: ATTEND Nurse Practitioner Family
DX: M53.3 Sacrococcygeal disorders, not elsewhere classified (principal)

== ENCOUNTER → 2020-07-12 | Outpatient (CLI) | payer MEDICARE ==
--- NOTE | 2020-07-16 00:02 | ECWPNPC ---
PATIENT NAME: KATH HUMPHREYS : 1950 GENDER: FEMALE VISIT DATE: 07/12/2020 DISCHARGE DATE: 07/12/20 1126 VISIT LOCKED DATE TIME: PHYSICIAN: BOB WESTBROOK RESOURCE: BOB WESTBROOK REASON FOR APPOINTMENT 1. REVIEW MRI/INCREASED PAIN HISTORY OF PRESENT ILLNESS GENERAL: HERE FOR FOLLOW-UP OF CHRONIC LEFT LOW BACK PAIN. MRI OF LS SPINE IS REVIEWED WITH PATIENT TODAY THAT I HAD ORDERED AT HER INITIAL CONSULT. SHOWING CONDITION UNCHANGED FROM HER PREVIOUS MRI. SHOWING MILD TO MODERATE SPINAL STENOSIS AT L5-S1. 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 DISCUSSED AT LENGTH PROCEDURES AVAILABLE TO TREAT THIS HERE AT OUR [facility]. THIS INCLUDED LEFT SACROILIAC JOINT BLOCK AND LEFT LUMBAR FACET BLOCK. PATIENT WOULD LIKE TO RESEARCH THIS MORE BEFORE DOING INJECTIONS. I REVIEWED POTENTIAL INCREASED RISK FOR IMMUNE SUPPRESSION FOR 7-10 DAYS POST STEROID INJECTION. PATIENT WOULD LIKE TO WAIT A BIT TO CONSIDER THIS.-. FALL RISK SCREENING: SCREENING :ONE FALL WITHOUT INJURY IN THE PAST YEAR PAIN SCREENING: PATIENT HAS A COMPLAINT OF ACUTE OR CHRONIC PAIN :YES LOCATION OF PAIN:LOW BACK, LEFT HIP INTENSITY OF PAIN (SCALE OF 1 TO 10):9 WHAT DOES YOUR PAIN FEEL LIKE:ACHING, SHARP DURATION:INTERMITTENT PAIN IS INCREASED BY:ACTIVITIES PAIN IS DECREASED BY:SITTING TREATMENT/MEDICATIONS USED TO MANAGE PAIN:OTC PAIN RELIEVERS LEVEL OF RELIEF FROM PAIN TREATMENTS IN THE PAST:100% SITTING PAIN HAS INTERFERED WITH THE FOLLOWING:BATHING/DRESSING, WALKING ABILITY, HOUSEWORK, TRANSPORTATION, TOILETING NURSING NOTE: -. PAIN CENTER INTAKE QUESTIONS: DO YOU HAVE A HISTORY OF MRSA? :NO DO YOU TAKE A BLOOD THINNERS? :NO DO YOU HAVE ANY BLEEDING DISORDERS? :NO ANY NEW NUMBNESS OR WEAKNESS IN YOUR LEGS OR ARMS? :NO ANY PACEMAKER,DEFIBRILLATOR, OR DORSAL COLUMN STIMULATOR? :NO DO YOU HAVE ANY RASHES OR OPEN SORES? :NO ARE YOU ALLERGIC TO IV DYE? :NO ARE YOU DIABETIC? :NO ANY NEW PROBLEMS WITH YOUR MEDICATIONS? :NO HAVE YOU RECEIVED A VACCINE IN THE PAST 30 DAYS? :NO DO YOU PLAN TO RECEIVE A VACCINE IN THE NEXT 21 DAYS? :NO DO YOU NEED ANY PRESCRIPTION? :NO DO YOU TAKE ANY IMMUNOSUPPRESSIVE MEDICATIONS? :NO IS THERE A CHANCE YOU COULD BE ? :NO ARE YOU BREAST FEEDING? :NO CURRENT MEDICATIONS TAKING BUSPIRONE HCL 15 MG TABLET 1 TABLET ORALLY TWICE A DAY TAKING KLONOPIN 0.5 MG TABLET 1 TABLET AT BEDTIME ORALLY BID TAKING PROPRANOLOL HCL ER 60 MG CAPSULE EXTENDED RELEASE 1 CAPSULE ORALLY ONCE A DAY TAKING PANTOPRAZOLE SODIUM 20 MG TABLET DELAYED RELEASE 1 TABLET ORALLY ONCE A DAY TAKING SERTRALINE HCL 25 MG TABLET 1 TABLET ORALLY BID TAKING TYLENOL 8 HOUR 650 MG TABLET EXTENDED RELEASE 2 TABLETS NEEDED ORALLY EVERY 8 HRS TAKING VITAMIN D 1000 UNIT CAPSULE 1 CAPSULE ORALLY ONCE A DAY MEDICATION LIST REVIEWED AND RECONCILED WITH THE PATIENT PAST MEDICAL HISTORY PANIC ATTACKS/ ANXIEYY CHRONIC PAIN GERD OSTEO ARTHRITIS SLEEP APNEA ALLERGIES N.K.D.A. SURGICAL HISTORY C SECTION 1971 1973 TOTAL HYSTERECTOMY REMOVAL OF LIPOMAS FAMILY HISTORY FATHER: 85 YRS, DIAGNOSED WITH HYPERTENSION MOTHER: 72 YRS SON(S): ALIVE DAUGHTER(S): ALIVE MOTHER OF MULTIPLE MYLOMA. SOCIAL HISTORY GENERAL: TOBACCO USE ARE YOU A:NONSMOKER LATEX QUESTIONNAIRE LATEX ALLERGY : HAVE YOU EVER DEVELOPED ANY TYPE OF REACTION AFTER HANDLING LATEX PRODUCTS SUCH RUBBER GLOVES, CONDOMS, DIAPHRAGMS, BALLOONS, SOCKS, OR UNDERWEAR?NO ALCOHOL SCREENING DID YOU HAVE A DRINK CONTAINING ALCOHOL IN THE PAST YEAR?YES HOW MANY DRINKS DID YOU HAVE ON A TYPICAL DAY WHEN YOU WERE DRINKING IN THE PAST YEAR?1 OR 2 (0 POINTS) HOW OFTEN DID YOU HAVE A DRINK CONTAINING ALCOHOL IN THE PAST YEAR?TWO TO FOUR TIMES A MONTH (2 POINTS) POINTS2 INTERPRETATIONNEGATIVE RECREATIONAL DRUG USE DRUG USE?NO PATIENT DENIES ABUSE OR MISSUSED OF ANY MEDICATION DENIES ANY PAST HISTORY OR CURRENT USE OF RECREATIONAL DRUG USE CAFFEINE CAFFEINE USE?YES HOW OFTEN AND HOW MUCH? 1/DAY AMISH AMISH CHRISTIIAN LANGUAGE LANGUAGES SPOKEN:[place] EDUCATION LEVEL OF EDUCATION:HIGH SCHOOL LEARNING BARRIERS / SPECIAL NEEDS BARRIERS TO LEARNING? 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 PAIN CLINIC PFS, CLERGY, PUBLIC HEALTH REFERRALS HAS THE PATIENT BEEN EDUCATED REGARDING HIS/HER PLAN OF CARE?YES HAS THE PATIENT BEEN EDUCATED REGARDING PAIN, THE RISK FOR PAIN, THE IMPORTANCE OF EFFECTIVE PAIN MANAGEMENT, AND THE PAIN ASSESSMENT PROCESS?YES ADVANCE DIRECTIVE ADVANCE DIRECTIVE DISCUSSED WITH PATIENT:YES ROMY [phone] HOSPITALIZATION/MAJOR DIAGNOSTIC PROCEDURE NO HOSPITALIZATION HISTORY. REVIEW OF SYSTEMS CONSTITUTIONAL: ANY RECENT FEVER NO . CHILLS NO . WEIGHT CHANGE OF UNKNOWN REASONS NO . GASTROENTEROLOGY: NEW UNEXPLAINABLE CHANGES IN BOWEL CONTROL NO . CONSTIPATION NO . GENITOURINARY: ANY NEW CHANGE IN BLADDER CONTROL? NO . NEUROLOGY: NEW ONSET DIZZINESS OR NEUROLOGICAL CHANGES NOT MENTIONED NO . NEW NUMBNESS OR PAIN PATTERNS NOT MENTIONED AND PERTINENT TO TODAY'S VISIT NO . CARDIOLOGY: NEW CHEST PRESSURE NO . NEW CHEST PAIN NO . RESPIRATORY: UNEXPLAINABLE COUGH NO . NEW SHORTNESS OF BREATH NO . VITAL SIGNS WT 231.2 LBS, HT 65 IN, BMI 38.47 INDEX, BP 131/63 MM HG, HR 60 /MIN, RR 18 /MIN, TEMP 97.2 F, OXYGEN SAT % 96%, SAFE IN ENV? (Y/N) Y, NA INITIALS SC 10:29, REVIEWED BY: MELISSA. EXAMINATION GENERAL EXAMINATION: GENERAL AWAKE,ALERT ,PLEASANT . PSYCH AFFECT NORMAL . LUNGS: LUNG FLETCHER ARE CLEAR TO AUSCULTATION BILATERALLY. GOOD MOVEMENT OF AIR . HEART: S1, S2 IN A REGULAR RATE AND RHYTHM. NO SIGNIFICANT MURMURS, RUBS OR GALLOPS NOTED . LUMBAR:MARKED TENDERNESS NOTED OVER LEFT SIJ/POSITIVE FOR PAIN WITH FACET LOADING AT LEFT L4/5-L5/S1. DIAGNOSTIC TESTS REVIEWED MRI L/S SPINE-06/27/2020. ASSESSMENTS SACROILIAC JOINT PAIN - M53.3 (PRIMARY) DEGENERATIVE LUMBAR SPINAL STENOSIS - M48.061 TREATMENT SACROILIAC JOINT PAIN NOTES: PATIENT WILL RESEARCH SACROILIAC JOINT BLOCK, LUMBAR FACET BLOCK AND LUMBAR RADIOFREQUENCY. FOLLOW-UP IS SCHEDULED IN 3 MONTHS. PROCEDURE CODES FA211 ESTABILISHED PATIENT [facility] CHARGE DISPOSITION & COMMUNICATION FOLLOW UP 3 MONTHS (REASON: CONSIDER INTERVENTIONAL OPTIONS) ELECTRONICALLY SIGNED BY SHIMA JUAREZ ON 07/15/2020 AT 10:59 AM EST DISCLAIMER : THIS IS A VISIT SUMMARY EXTRACTED FROM THE [employer] CHART. IT IS NOT A COPY OF THE [employer] PROGRESS NOTE. IVÁN
== END ==
LOC: M PAIN 10:30
PROVIDERS: ATTEND Nurse Practitioner Family
DX: M53.3 Sacrococcygeal disorders, not elsewhere classified (principal); M48.061 Spinal stenosis, lumbar region without neurogenic claudication; G89.29 Other chronic pain; F41.0 Panic disorder [episodic paroxysmal anxiety]; K21.9 Gastro-esophageal reflux disease without esophagitis; M19.90 Unspecified osteoarthritis, unspecified site; G47.30 Sleep apnea, unspecified; Z79.899 Other long term (current) drug therapy

== ENCOUNTER → 2020-10-10 | Outpatient (CLI) | payer MEDICARE ==
--- NOTE | 2020-10-18 06:15 | ECWPNPC ---
PATIENT NAME: KATH HUMPHREYS : 1950 GENDER: FEMALE VISIT DATE: 10/10/2020 DISCHARGE DATE: 10/10/20 1027 VISIT LOCKED DATE TIME: PHYSICIAN: BOB WESBTROOK RESOURCE: BOB WESTBROOK REASON FOR APPOINTMENT 1. CONSIDER INTERVENTIONAL OPTIONS HISTORY OF PRESENT ILLNESS DEPRESSION SCREENING: PHQ-2 (2015 EDITION) LITTLE INTEREST OR PLEASURE IN DOING THINGS?NOT AT ALL FEELING DOWN, DEPRESSED, OR HOPELESS?NOT AT ALL TOTAL SCORE0 GENERAL: HERE FOR FOLLOW-UP OF CHRONIC LOW BACK PAIN. OVERALL DOING VERY WELL. HAS EPISODES OF INCREASED LOW BACK PAIN AFTER INCREASED ACTIVITY THAT RESPONDS TO CONSERVATIVE TREATMENT. SHE IS REMAINING ACTIVE. -. FALL RISK SCREENING: SCREENING : NO FALLS REPORTED IN THE LAST YEAR. PAIN SCREENING: PATIENT HAS A COMPLAINT OF ACUTE OR CHRONIC PAIN :YES LOCATION OF PAIN:LOW BACK INTENSITY OF PAIN (SCALE OF 1 TO 10):0 WHAT DOES YOUR PAIN FEEL LIKE:THROBBING DURATION:INTERMITTENT PAIN IS INCREASED BY:PROLONGED STANDING PAIN IS DECREASED BY:USE OF PAIN MEDICATIONS, OTHERS NURSING NOTE: -. PAIN CENTER INTAKE QUESTIONS: DO YOU HAVE A HISTORY OF MRSA? :NO DO YOU TAKE A BLOOD THINNERS? :NO DO YOU HAVE ANY BLEEDING DISORDERS? :NO ANY NEW NUMBNESS OR WEAKNESS IN YOUR LEGS OR ARMS? :NO ANY PACEMAKER,DEFIBRILLATOR, OR DORSAL COLUMN STIMULATOR? :NO DO YOU HAVE ANY RASHES OR OPEN SORES? :NO ARE YOU ALLERGIC TO IV DYE? :NO ARE YOU DIABETIC? :NO ANY NEW PROBLEMS WITH YOUR MEDICATIONS? :NO HAVE YOU RECEIVED A VACCINE IN THE PAST 30 DAYS? :YES IF SO WHAT VACCINE AND WHEN? 2ND COVID STOP 10/09/2020 DO YOU PLAN TO RECEIVE A VACCINE IN THE NEXT 21 DAYS? :NO DO YOU NEED ANY PRESCRIPTION? :NO DO YOU TAKE ANY IMMUNOSUPPRESSIVE MEDICATIONS? :NO IS THERE A CHANCE YOU COULD BE ? :NO ARE YOU BREAST FEEDING? :NO CURRENT MEDICATIONS TAKING BUSPIRONE HCL 15 MG TABLET 1 TABLET ORALLY TWICE A DAY TAKING KLONOPIN 0.5 MG TABLET 1 TABLET AT BEDTIME ORALLY BID TAKING PROPRANOLOL HCL ER 60 MG CAPSULE EXTENDED RELEASE 1 CAPSULE ORALLY ONCE A DAY TAKING PANTOPRAZOLE SODIUM 20 MG TABLET DELAYED RELEASE 1 TABLET ORALLY ONCE A DAY TAKING SERTRALINE HCL 25 MG TABLET 1 TABLET ORALLY BID TAKING TYLENOL 8 HOUR 650 MG TABLET EXTENDED RELEASE 2 TABLETS NEEDED ORALLY EVERY 8 HRS TAKING VITAMIN D 1000 UNIT CAPSULE 1 CAPSULE ORALLY ONCE A DAY MEDICATION LIST REVIEWED AND RECONCILED WITH THE PATIENT PAST MEDICAL HISTORY PANIC ATTACKS/ ANXIEYY CHRONIC PAIN GERD OSTEO ARTHRITIS SLEEP APNEA BACK PAIN ALLERGIES N.K.D.A. SOCIAL HISTORY GENERAL: TOBACCO USE ARE YOU A:NONSMOKER LATEX QUESTIONNAIRE LATEX ALLERGY : HAVE YOU EVER DEVELOPED ANY TYPE OF REACTION AFTER HANDLING LATEX PRODUCTS SUCH RUBBER GLOVES, CONDOMS, DIAPHRAGMS, BALLOONS, SOCKS, OR UNDERWEAR?NO LATEX ALLERGY : HAVE YOU EVER DEVELOPED ANY TYPE OF REACTION DURING OR AFTER DENTAL APPOINTMENT, VAGINAL/RECTAL EXAMINATION, SURGICAL PROCEDURE, OR ANY OTHER EXPOSURE?NO LATEX RISK : HAVE YOU EVER HAD ANY DIFFICULTY BREATHING OR HIVES AFTER EATING OR HANDLING ANY FRUITS, OR VEGETABLES; SUCH KIWI, BANANAS, STONE FRUITS, OR CHESTNUTSNO LATEX RISK : DO YOU HAVE A PREVIOUS PERSONAL HISTORY OF MORE THAN NINE SURGERIES, SPINA BIFIDA, OR REPEATED CATHERIZATIONS? NO LATEX RISK : ARE YOU FREQUENTLY EXPOSED TO LATEX PRODUCTS IN YOUR OCCUPATION?NO DATE ASKED : 10/10/2020 ALCOHOL USE: YES, ONCE IN A WHILE WITH DINNER. ALCOHOL SCREENING DID YOU HAVE A DRINK CONTAINING ALCOHOL IN THE PAST YEAR?YES HOW MANY DRINKS DID YOU HAVE ON A TYPICAL DAY WHEN YOU WERE DRINKING IN THE PAST YEAR?1 OR 2 (0 POINTS) HOW OFTEN DID YOU HAVE A DRINK CONTAINING ALCOHOL IN THE PAST YEAR?TWO TO FOUR TIMES A MONTH (2 POINTS) POINTS2 INTERPRETATIONNEGATIVE RECREATIONAL DRUG USE DRUG USE?NO PATIENT DENIES ABUSE OR MISSUSED OF ANY MEDICATION DENIES ANY PAST HISTORY OR CURRENT USE OF RECREATIONAL DRUG USE CAFFEINE CAFFEINE USE?YES HOW OFTEN AND HOW MUCH? 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 - HAS THE PATIENT BEEN EDUCATED REGARDING HIS/HER PLAN OF CARE?YES HAS THE PATIENT BEEN EDUCATED REGARDING PAIN, THE RISK FOR PAIN, THE IMPORTANCE OF EFFECTIVE PAIN MANAGEMENT, AND THE PAIN ASSESSMENT PROCESS?YES ADVANCE DIRECTIVE ADVANCE DIRECTIVE DISCUSSED WITH PATIENT:YES ROMY [phone] REVIEW OF SYSTEMS CONSTITUTIONAL: ANY RECENT FEVER NO . CHILLS NO . WEIGHT CHANGE OF UNKNOWN REASONS NO . GASTROENTEROLOGY: NEW UNEXPLAINABLE CHANGES IN BOWEL CONTROL NO . CONSTIPATION NO . GENITOURINARY: ANY NEW CHANGE IN BLADDER CONTROL? NO . NEUROLOGY: NEW ONSET DIZZINESS OR NEUROLOGICAL CHANGES NOT MENTIONED NO . NEW NUMBNESS OR PAIN PATTERNS NOT MENTIONED AND PERTINENT TO TODAY'S VISIT NO . CARDIOLOGY: NEW CHEST PRESSURE NO . PATIENT DENIES NO . RESPIRATORY: UNEXPLAINABLE COUGH NO . NEW SHORTNESS OF BREATH NO . VITAL SIGNS WT 231 LBS, HT 65 IN, BMI 38.44 INDEX, BP 131/62 MM HG, HR 53 /MIN, RR 18 /MIN, TEMP 98 F, OXYGEN SAT % 96%, NA INITIALS SC 10:07. EXAMINATION GENERAL EXAMINATION: GENERALAWAKE,ALERT ,PLEASANT . PSYCHAFFECT NORMAL . LUNGS:LUNG FLETCHER ARE CLEAR TO AUSCULTATION BILATERALLY. GOOD MOVEMENT OF AIR . HEART:S1, S2 IN A REGULAR RATE AND RHYTHM. NO SIGNIFICANT MURMURS, RUBS OR GALLOPS NOTED . ASSESSMENTS SACROILIAC JOINT PAIN - M53.3 (PRIMARY) DEGENERATIVE LUMBAR SPINAL STENOSIS - M48.061 TREATMENT SACROILIAC JOINT PAIN NOTES: CONTINUE CONSERVATIVE CARE. PATIENT WILL CALL IF PAIN INCREASES AND SHE WOULD LIKE TO PURSUE TREATMENT OPTIONS. PROCEDURE CODES FA211 ESTABILISHED PATIENT [facility] FACILITY CHARGE DISPOSITION & COMMUNICATION FOLLOW UP PT WILL CALL IF NEEDED (REASON: LBP) ELECTRONICALLY SIGNED BY SHIMA JUAREZ ON 10/17/2020 AT 02:39 PM EST DISCLAIMER : THIS IS A VISIT SUMMARY EXTRACTED FROM THE [employer] CHART. IT IS NOT A COPY OF THE [employer] PROGRESS NOTE. IVÁN
== END ==
LOC: M PAIN 10:00
PROVIDERS: ATTEND Nurse Practitioner Family
DX: M53.3 Sacrococcygeal disorders, not elsewhere classified (principal); M48.061 Spinal stenosis, lumbar region without neurogenic claudication; G89.29 Other chronic pain; K21.9 Gastro-esophageal reflux disease without esophagitis; G47.30 Sleep apnea, unspecified; Z86.59 Personal history of other mental and behavioral disorders; Z79.899 Other long term (current) drug therapy

== ENCOUNTER → 2020-12-19 | Outpatient (CLI) | payer MEDICARE ==
--- NOTE | 2020-12-21 00:49 | ECWPNPC ---
PATIENT NAME: KATH HUMPHREYS : 1950 GENDER: FEMALE VISIT DATE: 12/19/2020 DISCHARGE DATE: 12/19/20 1018 VISIT LOCKED DATE TIME: PHYSICIAN: BOB WESTBROOK RESOURCE: BOB WESTBROOK REASON FOR APPOINTMENT 1. LOW BACK PAIN HISTORY OF PRESENT ILLNESS GENERAL: HERE FOR FOLLOW-UP OF CHRONIC LOW BACK PAIN. HAS HAD A SIGNIFICANT INCREASE IN CENTRAL LOW BACK PAIN OVER THE PAST MONTH. PRIMARY CARE PRESCRIBED TYLENOL AND IBUPROFEN WHICH PATIENT STATES IS NOT HELPING. PAIN IS AGGRAVATED BY EXTENSION OF SPINE AND WALKING. REVIEWED MRI OF THE LS-SPINE AND DISCUSSED TREATMENT OPTIONS TO INCLUDE LUMBAR THERAPEUTIC FACET BLOCK. POTENTIAL RISKS AND BENEFITS WERE REVIEWED. -. FALL RISK SCREENING: SCREENING TWICE FALLS REPORTED IN THE LAST YEAR NO INJURIES, DID NOT GO TO THE ER. PAIN SCREENING: PATIENT HAS A COMPLAINT OF ACUTE OR CHRONIC PAIN :YES LOCATION OF PAIN:LOW BACK INTENSITY OF PAIN (SCALE OF 1 TO 10):10 WHAT DOES YOUR PAIN FEEL LIKE:THROBBING DURATION:CONTINOUS, CONSTANT, ALL DAY PAIN IS INCREASED BY:ACTIVITIES PAIN IS DECREASED BY:OTHERS " MEDICATION IS NOT HELPING ANY MORE " NURSING NOTE: -. PAIN CENTER INTAKE QUESTIONS: DO YOU HAVE A HISTORY OF MRSA? :NO DO YOU TAKE A BLOOD THINNERS? :NO DO YOU HAVE ANY BLEEDING DISORDERS? :NO ANY NEW NUMBNESS OR WEAKNESS IN YOUR LEGS OR ARMS? :YES BOTH HANDS MAINLY AT BEDTIME" ONE NIGHT IT COULD BE THE RIGHT AND ANOTHER NIGHT I CAN BE THE OTHER HAND" ANY PACEMAKER,DEFIBRILLATOR, OR DORSAL COLUMN STIMULATOR? :NO DO YOU HAVE ANY RASHES OR OPEN SORES? :NO ARE YOU ALLERGIC TO IV DYE? :NO ARE YOU DIABETIC? :NO ANY NEW PROBLEMS WITH YOUR MEDICATIONS? :NO HAVE YOU RECEIVED A VACCINE IN THE PAST 30 DAYS? :YES IF SO WHAT VACCINE AND WHEN? 2ND COVID STOP 10/09/2020 DO YOU PLAN TO RECEIVE A VACCINE IN THE NEXT 21 DAYS? :NO DO YOU NEED ANY PRESCRIPTION? :NO DO YOU TAKE ANY IMMUNOSUPPRESSIVE MEDICATIONS? :NO IS THERE A CHANCE YOU COULD BE ? :NO ARE YOU BREAST FEEDING? :NO CURRENT MEDICATIONS TAKING BUSPIRONE HCL 15 MG TABLET 1 TABLET ORALLY TWICE A DAY TAKING KLONOPIN 0.5 MG TABLET 1 TABLET AT BEDTIME ORALLY BID TAKING PROPRANOLOL HCL ER 60 MG CAPSULE EXTENDED RELEASE 1 CAPSULE ORALLY ONCE A DAY AT BED TIME TAKING PANTOPRAZOLE SODIUM 20 MG TABLET DELAYED RELEASE 1 TABLET ORALLY ONCE A DAY TAKING SERTRALINE HCL 25 MG TABLET 1 TABLET ORALLY BID TAKING TYLENOL 8 HOUR 650 MG TABLET EXTENDED RELEASE 2 TABLETS NEEDED ORALLY EVERY 8 HRS TAKING VITAMIN D 1000 UNIT CAPSULE 1 CAPSULE ORALLY ONCE A DAY TAKING ONDANSETRON HCL 4 MG TABLET 1 TABLET ORALLY 1-3 TIMES A DAY NEEDED MEDICATION LIST REVIEWED AND RECONCILED WITH THE PATIENT PAST MEDICAL HISTORY PANIC ATTACKS/ ANXIEYY CHRONIC PAIN GERD OSTEO ARTHRITIS SLEEP APNEA BACK PAIN ALLERGIES N.K.D.A. SOCIAL HISTORY GENERAL: TOBACCO USE ARE YOU A:NONSMOKER LATEX QUESTIONNAIRE LATEX ALLERGY : HAVE YOU EVER DEVELOPED ANY TYPE OF REACTION AFTER HANDLING LATEX PRODUCTS SUCH RUBBER GLOVES, CONDOMS, DIAPHRAGMS, BALLOONS, SOCKS, OR UNDERWEAR?NO LATEX ALLERGY : HAVE YOU EVER DEVELOPED ANY TYPE OF REACTION DURING OR AFTER DENTAL APPOINTMENT, VAGINAL/RECTAL EXAMINATION, SURGICAL PROCEDURE, OR ANY OTHER EXPOSURE?NO LATEX RISK : HAVE YOU EVER HAD ANY DIFFICULTY BREATHING OR HIVES AFTER EATING OR HANDLING ANY FRUITS, OR VEGETABLES; SUCH KIWI, BANANAS, STONE FRUITS, OR CHESTNUTSNO LATEX RISK : DO YOU HAVE A PREVIOUS PERSONAL HISTORY OF MORE THAN NINE SURGERIES, SPINA BIFIDA, OR REPEATED CATHERIZATIONS? NO LATEX RISK : ARE YOU FREQUENTLY EXPOSED TO LATEX PRODUCTS IN YOUR OCCUPATION?NO DATE ASKED : 12/19/2020 ALCOHOL USE: YES, ONCE IN A WHILE WITH DINNER. ALCOHOL SCREENING DID YOU HAVE A DRINK CONTAINING ALCOHOL IN THE PAST YEAR?YES HOW MANY DRINKS DID YOU HAVE ON A TYPICAL DAY WHEN YOU WERE DRINKING IN THE PAST YEAR?1 OR 2 (0 POINTS) HOW OFTEN DID YOU HAVE A DRINK CONTAINING ALCOHOL IN THE PAST YEAR?TWO TO FOUR TIMES A MONTH (2 POINTS) POINTS2 INTERPRETATIONNEGATIVE RECREATIONAL DRUG USE DRUG USE?NO PATIENT DENIES ABUSE OR MISSUSED OF ANY MEDICATION DENIES ANY PAST HISTORY OR CURRENT USE OF RECREATIONAL DRUG USE CAFFEINE CAFFEINE USE?YES HOW OFTEN AND HOW MUCH? 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 - HAS THE PATIENT BEEN EDUCATED REGARDING HIS/HER PLAN OF CARE?YES HAS THE PATIENT BEEN EDUCATED REGARDING PAIN, THE RISK FOR PAIN, THE IMPORTANCE OF EFFECTIVE PAIN MANAGEMENT, AND THE PAIN ASSESSMENT PROCESS?YES ADVANCE DIRECTIVE ADVANCE DIRECTIVE DISCUSSED WITH PATIENT:YES ROMY [phone] REVIEW OF SYSTEMS CONSTITUTIONAL: ANY RECENT FEVER NO . CHILLS NO . WEIGHT CHANGE OF UNKNOWN REASONS NO . GASTROENTEROLOGY: NEW UNEXPLAINABLE CHANGES IN BOWEL CONTROL NO . CONSTIPATION NO . GENITOURINARY: ANY NEW CHANGE IN BLADDER CONTROL? NO . NEUROLOGY: NEW ONSET DIZZINESS OR NEUROLOGICAL CHANGES NOT MENTIONED NO . NEW NUMBNESS OR PAIN PATTERNS NOT MENTIONED AND PERTINENT TO TODAY'S VISIT NO . CARDIOLOGY: NEW CHEST PRESSURE NO . PATIENT DENIES NO . RESPIRATORY: UNEXPLAINABLE COUGH NO . NEW SHORTNESS OF BREATH NO . VITAL SIGNS WT 240.8 LBS, HT 65 IN, BMI 40.07 INDEX, BP 131/62 MM HG, HR 68 /MIN, RR 18 /MIN, TEMP 97.8 F, OXYGEN SAT % 95%, SAFE IN ENV? (Y/N) YES, NA INITIALS AW 0941T.BRAEDEN JOYCE. EXAMINATION GENERAL EXAMINATION: GENERAL AWAKE,ALERT ,PLEASANT . PSYCH AFFECT NORMAL . LUNGS: LUNG FLETCHER ARE CLEAR TO AUSCULTATION BILATERALLY. GOOD MOVEMENT OF AIR . HEART: S1, S2 IN A REGULAR RATE AND RHYTHM. NO SIGNIFICANT MURMURS, RUBS OR GALLOPS NOTED . LUMBAR:MARKED TENDERNESS NOTED OVER BILATERAL LOWER LUMBAR FACETS WITH FACET LOADING.. DIAGNOSTIC TESTS REVIEWED MRI L/S SPINE-06/27/2020. ASSESSMENTS DEGENERATIVE LUMBAR SPINAL STENOSIS - M48.061 TREATMENT DEGENERATIVE LUMBAR SPINAL STENOSIS SALINE LOCK (ORDERED FOR 12/26/2020) MEDICATION: OXYCODONE HCL TAB 5MG ORALLY (ORDERED FOR 12/26/2020) MEDICATION: VALIUM TAB 5MG ORALLY (DIAZEPAM) (ORDERED FOR 12/26/2020) NOTES: BILATERAL THERAPEUTIC LUMBAR FACET BLOCK L4-5,L5-S1 PRINTED AND REVIEWED PRE PROCEDURE INFORMATION, PATIENT VERBALIZED UNDERSTANDING BEATRIZ JOYCE. PROCEDURE CODES FA211 ESTABILISHED PATIENT [facility] FACILITY CHARGE DISPOSITION & COMMUNICATION ELECTRONICALLY SIGNED BY BOB RONQUILLO, SHIMA ON 12/20/2020 AT 02:20 PM EDT DISCLAIMER : THIS IS A VISIT SUMMARY EXTRACTED FROM THE [employer] CHART. IT IS NOT A COPY OF THE [employer] PROGRESS NOTE. IVÁN
== END ==
LOC: M PAIN 09:15
PROVIDERS: ATTEND Nurse Practitioner Family
DX: M48.061 Spinal stenosis, lumbar region without neurogenic claudication (principal); G89.29 Other chronic pain; K21.9 Gastro-esophageal reflux disease without esophagitis; G47.30 Sleep apnea, unspecified; Z86.59 Personal history of other mental and behavioral disorders; E66.01 Morbid (severe) obesity due to excess calories; Z68.41 Body mass index [BMI] 40.0-44.9, adult; Z79.899 Other long term (current) drug therapy

== ENCOUNTER → 2020-12-21 | Outpatient (CLI) | payer MEDICARE | LOC: M LABSMTC 09:01 | PROVIDERS: ATTEND Anesthesiology | DX: Z20.822 Contact with and (suspected) exposure to COVID-19 (principal) ==

== ENCOUNTER → 2020-12-26 | Outpatient (CLI) | payer MEDICARE ==
[~2020-12-26] MED LIST changes: +BUPIVACAINE HCL 0.25% 30ML VIAL As Ordered ONE; +ISOVUE-M 300 61% 15ML VIAL As Ordered ONE; +LIDOCAINE 1% SDV 30ML VIAL As Ordered ONE; +TRIAMCINOLONE ACETONIDE SUSP 40 MG/ML VIAL (J3301) As Ordered ONE; +diazePAM 5MG TABLET As Ordered ONE; +oxyCODONE 5MG TAB As Ordered ONE
--- NOTE | 2020-12-26 13:48 | REP ---
INDICATION: BILATERAL THERAPEUTIC LUMBAR FACET BLOCK. COMPARISON: None. TECHNIQUE: C-arm view lower lumbar spine. FINDINGS: 2 needles are seen along the lower lumbar spine and a small amount of contrast is injected. IMPRESSION: 12 seconds of fluoroscopy time was utilized. <Electronically signed by Wisam Phillips > 12/26/20 [id number]
--- NOTE | 2021-01-01 00:26 | ECWPNPC ---
PATIENT NAME: KATH HUMPHREYS : 1950 GENDER: FEMALE VISIT DATE: 12/26/2020 DISCHARGE DATE: 12/26/20 1211 VISIT LOCKED DATE TIME: PHYSICIAN: HAILE WOOTEN MD RESOURCE: HAILE WOOTEN MD REASON FOR APPOINTMENT 1. LEFT THERAPEUTIC LUMBAR FACET BLOCK L4-L5,L5-S1. HISTORY OF PRESENT ILLNESS GENERAL: -. FALL RISK SCREENING: SCREENING : NO FALLS REPORTED IN THE LAST YEAR. PAIN SCREENING: PATIENT HAS A COMPLAINT OF ACUTE OR CHRONIC PAIN :YES LOCATION OF PAIN:LOW BACK INTENSITY OF PAIN (SCALE OF 1 TO 10):2 WHAT DOES YOUR PAIN FEEL LIKE:ACHING, SHARP, STABBING, SHOOTING DURATION:CONSTANT, STEADY NURSING NOTE: -. PAIN CENTER INTAKE QUESTIONS: DO YOU HAVE A HISTORY OF MRSA? :NO DO YOU TAKE A BLOOD THINNERS? :NO DO YOU HAVE ANY BLEEDING DISORDERS? :NO ANY NEW NUMBNESS OR WEAKNESS IN YOUR LEGS OR ARMS? :NO ANY PACEMAKER,DEFIBRILLATOR, OR DORSAL COLUMN STIMULATOR? :NO DO YOU HAVE ANY RASHES OR OPEN SORES? :NO ARE YOU ALLERGIC TO IV DYE? :NO ARE YOU DIABETIC? :NO ANY NEW PROBLEMS WITH YOUR MEDICATIONS? :NO HAVE YOU RECEIVED A VACCINE IN THE PAST 30 DAYS? :NO DO YOU PLAN TO RECEIVE A VACCINE IN THE NEXT 21 DAYS? :NO DO YOU TAKE ANY IMMUNOSUPPRESSIVE MEDICATIONS? :NO ANY HISTORY OF SEIZURES? :NO ANY HISTORY OF CARDIAC ISSUES OR EVENTS? :NO DO YOU HAVE ANY KIDNEY OR LIVER DISEASE? :NO DO YOU HAVE SLEEP APNEA? :YES DO YOU WEAR A CPAP?YES ANY RECENT HEAD INJURY? :NO DO YOU HAVE ANY NEW INFECTIONS? :NO IS THERE A CHANCE YOU COULD BE ? :NO ARE YOU BREAST FEEDING? :NO WHEN DID YOU LAST EAT? : 12/25/20 1900 WHEN DID YOU LAST DRINK? : 0800 WHAT DID YOU LAST DRINK? : WATER NAME OF PERSON DRIVING YOU HOME? : - TI DO YOU HAVE ANY OTHER QUESTIONS OR CONCERNS? : -DENIES CURRENT MEDICATIONS TAKING BUSPIRONE HCL 15 MG TABLET 1 TABLET ORALLY TWICE A DAY TAKING KLONOPIN 0.5 MG TABLET 1 TABLET AT BEDTIME ORALLY BID, NOTES: 1999 TAKING PROPRANOLOL HCL ER 60 MG CAPSULE EXTENDED RELEASE 1 CAPSULE ORALLY ONCE A DAY AT BED TIME, NOTES: 0800 TAKING PANTOPRAZOLE SODIUM 20 MG TABLET DELAYED RELEASE 1 TABLET ORALLY ONCE A DAY TAKING SERTRALINE HCL 25 MG TABLET 1 TABLET ORALLY BID TAKING VITAMIN D 1000 UNIT CAPSULE 1 CAPSULE ORALLY ONCE A DAY NOT-TAKING TYLENOL 8 HOUR 650 MG TABLET EXTENDED RELEASE 2 TABLETS NEEDED ORALLY EVERY 8 HRS NOT-TAKING ONDANSETRON HCL 4 MG TABLET 1 TABLET ORALLY 1-3 TIMES A DAY NEEDED MEDICATION LIST REVIEWED AND RECONCILED WITH THE PATIENT PAST MEDICAL HISTORY PANIC ATTACKS/ ANXIEYY CHRONIC PAIN GERD OSTEO ARTHRITIS SLEEP APNEA BACK PAIN ALLERGIES N.K.D.A. SOCIAL HISTORY GENERAL: TOBACCO USE ARE YOU A:NONSMOKER LATEX QUESTIONNAIRE LATEX ALLERGY : HAVE YOU EVER DEVELOPED ANY TYPE OF REACTION AFTER HANDLING LATEX PRODUCTS SUCH RUBBER GLOVES, CONDOMS, DIAPHRAGMS, BALLOONS, SOCKS, OR UNDERWEAR?NO LATEX ALLERGY : HAVE YOU EVER DEVELOPED ANY TYPE OF REACTION DURING OR AFTER DENTAL APPOINTMENT, VAGINAL/RECTAL EXAMINATION, SURGICAL PROCEDURE, OR ANY OTHER EXPOSURE?NO DATE ASKED : 12/19/2020 LATEX RISK : HAVE YOU EVER HAD ANY DIFFICULTY BREATHING OR HIVES AFTER EATING OR HANDLING ANY FRUITS, OR VEGETABLES; SUCH KIWI, BANANAS, STONE FRUITS, OR CHESTNUTSNO LATEX RISK : DO YOU HAVE A PREVIOUS PERSONAL HISTORY OF MORE THAN NINE SURGERIES, SPINA BIFIDA, OR REPEATED CATHERIZATIONS? NO LATEX RISK : ARE YOU FREQUENTLY EXPOSED TO LATEX PRODUCTS IN YOUR OCCUPATION?NO ALCOHOL USE: YES, ONCE IN A WHILE WITH DINNER. ALCOHOL SCREENING DID YOU HAVE A DRINK CONTAINING ALCOHOL IN THE PAST YEAR?YES HOW MANY DRINKS DID YOU HAVE ON A TYPICAL DAY WHEN YOU WERE DRINKING IN THE PAST YEAR?1 OR 2 (0 POINTS) HOW OFTEN DID YOU HAVE A DRINK CONTAINING ALCOHOL IN THE PAST YEAR?TWO TO FOUR TIMES A MONTH (2 POINTS) POINTS2 INTERPRETATIONNEGATIVE RECREATIONAL DRUG USE DRUG USE?NO PATIENT DENIES ABUSE OR MISSUSED OF ANY MEDICATION DENIES ANY PAST HISTORY OR CURRENT USE OF RECREATIONAL DRUG USE CAFFEINE CAFFEINE USE?YES HOW OFTEN AND HOW MUCH? 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 - HAS THE PATIENT BEEN EDUCATED REGARDING HIS/HER PLAN OF CARE?YES HAS THE PATIENT BEEN EDUCATED REGARDING PAIN, THE RISK FOR PAIN, THE IMPORTANCE OF EFFECTIVE PAIN MANAGEMENT, AND THE PAIN ASSESSMENT PROCESS?YES ADVANCE DIRECTIVE ADVANCE DIRECTIVE DISCUSSED WITH PATIENT:YES ROMY [phone] VITAL SIGNS WT 236.2 LBS, HT 65 IN, BMI 39.30 INDEX, BP 157/73 MM HG, HR 63 /MIN, RR 18 /MIN, TEMP 98.2 F, OXYGEN SAT % 98%, SAFE IN ENV? (Y/N) YES, NA INITIALS AW 1000, REVIEWED BY: APA. IVY RN. EXAMINATION GENERAL: THE PATIENT IS ALERT, ORIENTED TIMES THREE AND COOPERATIVE. LUNGS ARE CLEAR TO AUSCULTATION. HEART SHOWS REGULAR RHYTHM, NO MURMURS AND NO GALLOPS. ASSESSMENTS SPONDYLOSIS WITHOUT MYELOPATHY OR RADICULOPATHY, LUMBAR REGION - M47.816 (PRIMARY) SPONDYLOSIS WITHOUT MYELOPATHY OR RADICULOPATHY, LUMBOSACRAL REGION - M47.817 TREATMENT SPONDYLOSIS WITHOUT MYELOPATHY OR RADICULOPATHY, LUMBAR REGION [facility] FACET BLOCK (PAIN)[id number] COMPLETION OF PROCEDURAL VISIT WHEN MEETS CRITERIAVIVEK HAYNES 12/26/2020 12:06:52 PM > CRITERIA MET MEDICATION: VALIUM TAB 5MG ORALLY (DIAZEPAM)IVA FERGUSON 12/26/2020 10:47:44 AM > VERIFIED. VIVEK HAYNES 12/26/2020 10:49:35 AM > ADMINISTERED MEDICATION: OXYCODONE HCL TAB 5MG ORALLY IAV FERGUSON 12/26/2020 10:47:28 AM > VERIFIED. VIVEK HAYNES 12/26/2020 10:49:47 AM > ADMINISTERED SALINE LOCKPEVIVEK LOZANO 12/26/2020 10:47:45 AM > 2 UNSUCCESSFUL ATTEMPTS AT CATHETER INSERTION BY THIS COSTUMER VIVEK HAYNES 12/26/2020 10:55:53 AM > 22G INSERTED INTO RIGHT AC BY Melvin VERMA RN ON 1ST ATTEMPT VIVEK HAYNES 12/26/2020 12:07:35 PM > SL REMOVED, CATHETER TIP INTACT, DSD APPLIED. PROCEDURES PAIN NURSING RECORD PROCEDURE IN ROOM 1110, PHYSICIAN IN ROOM 1136, START 1142, FINISH 1145, PHYSICIAN OUT OF ROOM 1147, OUT OF ROOM 1153, ECG OTHER SINUS BRADYCARDIA, PATIENT SHIELDED YES, SAFETY STRAP YES, PREP CHLOROPREP Viviana HAYNES RN, DRESSING TEGADERM DR. WOOTEN LOC: PETRAS,VIVEK R 12/26/2020 11:43:08 AM > , 1. ALERT, ORIENTED RESP: PETRAS,VIVEK R 12/26/2020 11:43:11 AM > , 1. REGULAR, NO DYSPNEA COLOR: PETRAS,VIVEK R 12/26/2020 11:43:13 AM > , 1. PINK SKIN: PETRAS,VIVEK R 12/26/2020 11:43:15 AM > , 1. WARM, DRY POSITION: PETRAS,VIVEK R 12/26/2020 11:43:18 AM > , 1. PRONE VITALS: 1105 HR 57 R18 02 95% BP 112/57 AW PETRAS,VIVEK R 12/26/2020 11:17:57 AM > 140/83, 57, 18, 96% PETRAS,VIVEK R 12/26/2020 11:28: 31 AM > 136/76, 59, 18, 95% PETRAS,VIVEK R 12/26/2020 11:43:22 AM >135/76, 57, 18, 95% PETRAS,VIVEK R 12/26/2020 11:48:01 AM > 135/76, 55, 16, 93%Q PETRAS,VIVEK R 12/26/2020 11:58:12 AM > 135/65, 52, 18, 95% NOTES RASH NOTED TO MEDIAL BILATERAL BACK. NUMEROUS SMALL RED DOTS, NON-RAISED NOTED. PATIENT DENIES ITCHING OR PAIN TO SITE. DR. WOOTEN IN TO SEE SKIN. PATIENT TO FOLLOW WITH PRIMARY ON WEDNESDAY. MARIANA SHOWN RASH FOLLOWING PROCEDURE AND MADE AWARE. SEE PROCEDURE PICTURE IN PATIENT DOCS.- Viviana HAYNES RN COMPLETION OF PROCEDURE APPOINTMENT: POST PAIN 2, DRESSING SITE DRY AND INTACT, IV DISCONTINUED, SITE CLEAR, CATHETER INTACT, GAIT STEADY, TEACHING COMPLETED, PATIENT ACKNOWLEDGES UNDERSTANDING YES, PROCEDURE APPOINTMENT COMPLETED AT 1208 BY: Viviana HAYNES RN PN LUMBAR FACET BLOCK THERAPEUTIC PRE PROCEDURE DIAGNOSIS LUMBAR SPONDYLOSIS, LUMBOSACRAL SPONDYLOSIS POST PROCEDURE DIAGNOSIS LUMBAR SPONDYLOSIS, LUMBOSACRAL SPONDYLOSIS PROCEDURE LEFT L4-L5 AND LEFT L5-S1 LUMBAR FACET THERAPEUTIC BLOCK SURGEON DR. HAILE WOOTEN COMMISSION SALES ASSOCIATE NONE ANESTHESIA LOCAL PRE PROCEDURE NOTE THE PATIENT HAS A HISTORY OF CHRONIC LOW BACK PAIN. I EVALUATED THE PATIENT AND REVIEWED THE CHART. I WENT OVER THE RISKS, ALTERNATIVES, AND BENEFITS ASSOCIATED WITH THIS PROCEDURE. THE PATIENT WOULD LIKE TO PROCEED AND GIVES CONSENT TO PERFORM THE PROCEDURE. THE PATIENT DENIES UNEXPLAINABLE WEIGHT LOSS, FEVER, CHILLS, OR NEW CHANGES IN URINARY OR BOWEL CONTROL. THE PATIENT IS COVID-19 NEGATIVE. THE PATIENT HAS A RASH ON HER BACK. SEE PHOTOS. MY PREFERENCE IS TO RESCHEDULE AND DO THIS A DIFFERENT DAY BUT THE PATIENT EXPLAINED THAT SHE IS IN A LOT OF PAIN AND DOES NOT WANT TO WAIT. I WILL HAVE TO AVOID THIS AREA DURING THE PROCEDURE, I WILL DO AN AP APPROACH. THE PATIENT IS GOING TO DISCUSS THIS WITH HER PRIMARY. WE SHOULD NOT DO ANY MORE INJECTIONS UNTIL WE KNOW WHAT IS GOING ON. SHE WILL REQUIRE A CLEARENCE FROM HER PRIMARY. DESCRIPTION OF PROCEDURE THE PATIENT WAS BROUGHT TO THE PROCEDURE ROOM AND PLACED IN THE PRONE POSITION. THE LUMBOSACRAL AREA WAS CLEANED WITH CHLORAPREP SOLUTION AND DRAPED ASEPTICALLY. THE PROCEDURE WAS DONE UNDER STERILE CONDITIONS. A TIMEOUT WAS PERFORMED WHERE THE CONSENTED SITE WAS VERIFIED WITH EVERYONE IN THE ROOM. UNDER FLUOROSCOPIC GUIDANCE, THE TARGET POINT WAS SELECTED AT THE LEFT L4-L5 AND LEFT L5-S1 FACET JOINTS. TARGET POINT WAS SELECTED AFTER LATERAL ROTATION AND TILT OF THE MAGNIFIER OF THE C-ARM. I CONFIRMED AGAIN THE SITE OF TARGET. LIDOCAINE 0.5% WAS USED TO NUMB THE SKIN AND THE SUBCUTANEOUS TISSUE BELOW IT. SPINAL NEEDLES, 22-GAUGE, WERE ADVANCED UNDER FLUOROSCOPIC GUIDANCE AND FOLLOWING PATIENT FEEDBACK UNTIL THE TARGETS WERE TOUCHED. THE POSITION OF THE NEEDLES WAS VERIFIED WITH AP AND LATERAL VIEWS. AFTER PROPER POSITION OF THE NEEDLES WAS ACHIEVED, ISOVUE-M DYE 30%, 0.1 ML, WAS INJECTED SHOWING ADEQUATE SPREAD OF THE DYE. KENALOG 10 MG WAS INJECTED AT EACH SITE. THEN, A SOLUTION OF 1.0 ML OF BUPIVACAINE 0.125% OF WAS USED TO FLUSH EACH SITE. THE MEDICATION WAS VERIFIED WITH THE NURSE. THERE WAS NO EVIDENCE OF BLOOD, PARESTHESIA OR CEREBROSPINAL FLUID DURING THE PROCEDURE. THE PATIENT WAS SENT TO THE RECOVERY ROOM. THE PATIENT WAS MOVING THE EXTREMITIES AND DOING WELL. THERE WERE NO COMPLICATIONS DURING THE PROCEDURE. ESTIMATED BLOOD LOSS WAS LESS THAN 5 ML. FLUOROSCOPY TIME WAS 13 SECONDS POST PROCEDURE NOTE DEPENDING ON THE RESULTS, CONSIDER A LEFT SACROILIAC JOINT BLOCK. THE PATEINT WILL NEED A CLEARENCE FROM HER PRIMARY ABOUT THE RASH BEFORE ANY FUTURE INJECTIONS. THE PATIENT WILL BE SEEN IN A FOLLOW UP IN THE NEXT FEW WEEKS. I AM LOOKING FOR LONG LASTING RELIEF FOR THE PATIENT WITH THIS INTERVENTION. INSTRUCTIONS WERE GIVEN, QUESTIONS WERE ANSWERED, AND THE PATIENT EXPRESSED UNDERSTANDING AND AGREES WITH THE PLAN. I, NAIMA FERGUSON, DOCUMENTED THE ABOVE INFORMATION ACTING A SCRIBE FOR DR. WOOTEN. I HAVE REVIEWED THE ABOVE DOCUMENT, WRITTEN BY PATRICIA FERGUSON, REGIONAL AGRONOMIST, AND I VERIFY THAT IT IS ACCURATE PROCEDURE CODES 48269 INJ PARAVERT F JNT L/S 1 LEV, MODIFIERS: [place] 44510 INJ PARAVERT F JNT L/S 2 LEV, MODIFIERS: LT DISPOSITION & COMMUNICATION FOLLOW UP FOLLOW UP WITH RETAIL SALES DIRECTOR (REASON: POST LEFT THERAPEUTIC LUMBAR FACET BLOCK L4-L5, L5-S1) ELECTRONICALLY SIGNED BY HAILE WOOTEN MD, MD ON 12/31/2020 AT 11:43 AM EDT DISCLAIMER : THIS IS A VISIT SUMMARY EXTRACTED FROM THE [employer] CHART. IT IS NOT A COPY OF THE [employer] PROGRESS NOTE. IVÁN
== END ==
LOC: M PAIN 10:00
PROVIDERS: ATTEND Anesthesiology
DX: M47.816 Spondylosis without myelopathy or radiculopathy, lumbar region (principal); M47.817 Spondylosis without myelopathy or radiculopathy, lumbosacral region; G47.30 Sleep apnea, unspecified; K21.9 Gastro-esophageal reflux disease without esophagitis; Z86.59 Personal history of other mental and behavioral disorders; Z79.899 Other long term (current) drug therapy
CPT/HCPCS: 64493; 64494; J3301; Q9967

== ENCOUNTER → 2021-01-09 | Outpatient (CLI) | payer MEDICARE ==
[~2021-01-09] MED LIST changes: -BUPIVACAINE HCL 0.25% 30ML VIAL As Ordered ONE; -ISOVUE-M 300 61% 15ML VIAL As Ordered ONE; -LIDOCAINE 1% SDV 30ML VIAL As Ordered ONE; -TRIAMCINOLONE ACETONIDE SUSP 40 MG/ML VIAL (J3301) As Ordered ONE; -diazePAM 5MG TABLET As Ordered ONE; -oxyCODONE 5MG TAB As Ordered ONE
--- NOTE | 2021-01-11 04:16 | ECWPNPC ---
PATIENT NAME: KATH HUMPHREYS : 1950 GENDER: FEMALE VISIT DATE: 01/09/2021 DISCHARGE DATE: 01/09/21 1033 VISIT LOCKED DATE TIME: PHYSICIAN: BOB WESTBROOK RESOURCE: BOB WESTBROOK REASON FOR APPOINTMENT 1. POST BILATERAL THERAPEUTIC LUMBAR FACET BLOCK L4-L5, L5-S1 HISTORY OF PRESENT ILLNESS GENERAL: HERE FOR POST PROCEDURE FOLLOW-UP. HAD BILATERAL LUMBAR THERAPEUTIC FACET BLOCK ON 12/26/2020. PATIENT FEELS LESS PAIN IN THAT AREA AND REPORTS IMPROVEMENT WITH PROLONGED STANDING OR WALKING SINCE PROCEDURE. CONTINUES WITH INTERMITTENT LEFT-SIDED LOW BACK PAIN. ON EXAM THIS IS OVER HER LEFT SACROILIAC JOINT. REPORTS IT INTERMITTENT. DISCUSSED SACROILIAC JOINT BLOCK. SHE WOULD LIKE TO TRY HOME EXERCISES AND STRETCHING AND TOPICAL VOLTAREN GEL INSTEAD AT THIS POINT. -. FALL RISK SCREENING: SCREENING ONE FALL ON 01/02/2021 NO MAJOR INJURIES. PAIN SCREENING: PATIENT HAS A COMPLAINT OF ACUTE OR CHRONIC PAIN :YES LOCATION OF PAIN:LOW BACK INTENSITY OF PAIN (SCALE OF 1 TO 10):2 WHAT DOES YOUR PAIN FEEL LIKE:ACHING, INTERMITTENT DURATION:INTERMITTENT PAIN IS INCREASED BY:OTHERS SITTING PAIN IS DECREASED BY:OTHERS HEAT NURSING NOTE: -. PAIN CENTER INTAKE QUESTIONS: DO YOU HAVE A HISTORY OF MRSA? :NO DO YOU TAKE A BLOOD THINNERS? :NO DO YOU HAVE ANY BLEEDING DISORDERS? :NO ANY NEW NUMBNESS OR WEAKNESS IN YOUR LEGS OR ARMS? :YES BOTH HANDS MAINLY AT BEDTIME" ONE NIGHT IT COULD BE THE RIGHT AND ANOTHER NIGHT IT CAN BE THE OTHER HAND" ANY PACEMAKER,DEFIBRILLATOR, OR DORSAL COLUMN STIMULATOR? :NO DO YOU HAVE ANY RASHES OR OPEN SORES? :NO ARE YOU ALLERGIC TO IV DYE? :NO ARE YOU DIABETIC? :NO ANY NEW PROBLEMS WITH YOUR MEDICATIONS? :NO HAVE YOU RECEIVED A VACCINE IN THE PAST 30 DAYS? :YES IF SO WHAT VACCINE AND WHEN? 2ND COVID STOP 10/09/2020 DO YOU PLAN TO RECEIVE A VACCINE IN THE NEXT 21 DAYS? :NO DO YOU NEED ANY PRESCRIPTION? :NO DO YOU TAKE ANY IMMUNOSUPPRESSIVE MEDICATIONS? :NO IS THERE A CHANCE YOU COULD BE ? :NO ARE YOU BREAST FEEDING? :NO CURRENT MEDICATIONS TAKING BUSPIRONE HCL 15 MG TABLET 1 TABLET ORALLY TWICE A DAY TAKING KLONOPIN 0.5 MG TABLET 1 TABLET AT BEDTIME ORALLY BID TAKING PROPRANOLOL HCL ER 60 MG CAPSULE EXTENDED RELEASE 1 CAPSULE ORALLY ONCE A DAY AT BED TIME TAKING PANTOPRAZOLE SODIUM 20 MG TABLET DELAYED RELEASE 1 TABLET ORALLY ONCE A DAY TAKING SERTRALINE HCL 25 MG TABLET 1 TABLET ORALLY BID TAKING VITAMIN D 1000 UNIT CAPSULE 1 CAPSULE ORALLY ONCE A DAY TAKING BACLOFEN 10 MG TABLET 1 TABLET NEEDED ORALLY TWICE A DAY NEEDED, NOTES: NOT SURE DOSE NOT-TAKING TYLENOL 8 HOUR 650 MG TABLET EXTENDED RELEASE 2 TABLETS NEEDED ORALLY EVERY 8 HRS NOT-TAKING ONDANSETRON HCL 4 MG TABLET 1 TABLET ORALLY 1-3 TIMES A DAY NEEDED MEDICATION LIST REVIEWED AND RECONCILED WITH THE PATIENT PAST MEDICAL HISTORY PANIC ATTACKS/ ANXIEYY CHRONIC PAIN GERD OSTEO ARTHRITIS SLEEP APNEA BACK PAIN FALL ON 01/02/2021 NO MAJOR INJURIES ALLERGIES N.K.D.A. SOCIAL HISTORY GENERAL: TOBACCO USE ARE YOU A:NONSMOKER LATEX QUESTIONNAIRE LATEX ALLERGY : HAVE YOU EVER DEVELOPED ANY TYPE OF REACTION AFTER HANDLING LATEX PRODUCTS SUCH RUBBER GLOVES, CONDOMS, DIAPHRAGMS, BALLOONS, SOCKS, OR UNDERWEAR?YES ADHESIVE TAPE - PLEASE INDICATE :OTHER (DOCUMENT IN NOTES) LATEX ALLERGY : HAVE YOU EVER DEVELOPED ANY TYPE OF REACTION DURING OR AFTER DENTAL APPOINTMENT, VAGINAL/RECTAL EXAMINATION, SURGICAL PROCEDURE, OR ANY OTHER EXPOSURE?NO LATEX RISK : HAVE YOU EVER HAD ANY DIFFICULTY BREATHING OR HIVES AFTER EATING OR HANDLING ANY FRUITS, OR VEGETABLES; SUCH KIWI, BANANAS, STONE FRUITS, OR CHESTNUTSNO LATEX RISK : DO YOU HAVE A PREVIOUS PERSONAL HISTORY OF MORE THAN NINE SURGERIES, SPINA BIFIDA, OR REPEATED CATHERIZATIONS? NO LATEX RISK : ARE YOU FREQUENTLY EXPOSED TO LATEX PRODUCTS IN YOUR OCCUPATION?NO DATE ASKED : 01/09/2021 ALCOHOL USE: YES, ONCE IN A WHILE WITH DINNER. ALCOHOL SCREENING DID YOU HAVE A DRINK CONTAINING ALCOHOL IN THE PAST YEAR?YES HOW MANY DRINKS DID YOU HAVE ON A TYPICAL DAY WHEN YOU WERE DRINKING IN THE PAST YEAR?1 OR 2 (0 POINTS) HOW OFTEN DID YOU HAVE A DRINK CONTAINING ALCOHOL IN THE PAST YEAR?TWO TO FOUR TIMES A MONTH (2 POINTS) POINTS2 INTERPRETATIONNEGATIVE RECREATIONAL DRUG USE DRUG USE?NO PATIENT DENIES ABUSE OR MISSUSED OF ANY MEDICATION DENIES ANY PAST HISTORY OR CURRENT USE OF RECREATIONAL DRUG USE CAFFEINE CAFFEINE USE?YES HOW OFTEN AND HOW MUCH? 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 - HAS THE PATIENT BEEN EDUCATED REGARDING HIS/HER PLAN OF CARE?YES HAS THE PATIENT BEEN EDUCATED REGARDING PAIN, THE RISK FOR PAIN, THE IMPORTANCE OF EFFECTIVE PAIN MANAGEMENT, AND THE PAIN ASSESSMENT PROCESS?YES ADVANCE DIRECTIVE ADVANCE DIRECTIVE DISCUSSED WITH PATIENT:YES ROMY [phone] REVIEW OF SYSTEMS CONSTITUTIONAL: ANY RECENT FEVER NO . CHILLS NO . WEIGHT CHANGE OF UNKNOWN REASONS NO . GASTROENTEROLOGY: NEW UNEXPLAINABLE CHANGES IN BOWEL CONTROL NO . CONSTIPATION NO . GENITOURINARY: ANY NEW CHANGE IN BLADDER CONTROL? NO . NEUROLOGY: NEW ONSET DIZZINESS OR NEUROLOGICAL CHANGES NOT MENTIONED NO . NEW NUMBNESS OR PAIN PATTERNS NOT MENTIONED AND PERTINENT TO TODAY'S VISIT NO . CARDIOLOGY: NEW CHEST PRESSURE NO . PATIENT DENIES NO . RESPIRATORY: UNEXPLAINABLE COUGH NO . NEW SHORTNESS OF BREATH NO . VITAL SIGNS WT 235.6 LBS, HT 65 IN, BMI 39.20 INDEX, BP 141/64 MM HG, HR 62 /MIN, RR 18 /MIN, TEMP 98.0 F, OXYGEN SAT % 95%, SAFE IN ENV? (Y/N) YES, NA INITIALS MS 09:54T.BRAEDEN JOYCE. EXAMINATION GENERAL EXAMINATION: GENERAL ALERT,NO DISTRESS . PSYCH AFFECT NORMAL . LUNGS: LUNG SOUNDS ARE CLEAR . HEART: HEART RATE REGULAR . MUSCULOSKELETAL: MST 5/5 BILAT. LOWER EXTREMITIES . LUMBAR: TENDERNESS LEFT SIJ . ASSESSMENTS OTHER CHRONIC PAIN - G89.29 (PRIMARY) SPONDYLOSIS WITHOUT MYELOPATHY OR RADICULOPATHY, LUMBAR REGION - M47.816 TREATMENT OTHER CHRONIC PAIN PAIN PROCEDURE LOGDATE OF PROCEDURE12/26/20PROCEDURE:LEFT THERAPEUTIC LUMBAR FACET BLOCK L4-L5, L5-L8TISTPQ OF PRE SEDATEVALIUM 5 MG, OXYCODONE 5 MGRESULT:IMPROVEMENT IN PAIN AND ACTIVITY TOLERANCE NOTES: PATIENT WAS GIVEN HANDOUT FOR LOW BACK STRETCHING EXERCISES. SHE WILL USE TOPICAL VOLTAREN GEL OVER TENDER AREA RIGHT LOW BACK. FOLLOW-UP IS SCHEDULED IN 3 MONTHS. PRINTED INFORMATION ON LOW BACK STRETCHING EXERCISES FOR PATIENT. BEATRIZ JOYCE. PROCEDURE CODES FA211 ESTABILISHED PATIENT [facility] CHARGE DISPOSITION & COMMUNICATION FOLLOW UP 3 MONTHS (REASON: LOW BACK PAIN/RESPONDS WELL TO LUMBAR THERAPEUTIC BLOCK, QUESTIONABLE RIGHT SACROILIITIS ON EXAM TODAY) ELECTRONICALLY SIGNED BY SHIMA JUAREZ ON 01/10/2021 AT 08:44 AM EDT DISCLAIMER : THIS IS A VISIT SUMMARY EXTRACTED FROM THE [employer] CHART. IT IS NOT A COPY OF THE [employer] PROGRESS NOTE. IVÁN
== END ==
LOC: M PAIN 09:45
PROVIDERS: ATTEND Nurse Practitioner Family
DX: M47.816 Spondylosis without myelopathy or radiculopathy, lumbar region (principal); G89.29 Other chronic pain; K21.9 Gastro-esophageal reflux disease without esophagitis; G47.30 Sleep apnea, unspecified; Z86.59 Personal history of other mental and behavioral disorders; Z79.899 Other long term (current) drug therapy

== ENCOUNTER → 2021-03-12 | Outpatient (CLI) | payer MEDICARE ==
--- NOTE | 2021-03-12 23:16 | ECWPNPC ---
PATIENT NAME: KATH HUMPHREYS : 1950 GENDER: FEMALE VISIT DATE: 03/12/2021 DISCHARGE DATE: 03/12/21 1118 VISIT LOCKED DATE TIME: PHYSICIAN: BOB WESTBROOK RESOURCE: BOB WESTBROOK REASON FOR APPOINTMENT 1. INCREASED PAIN HISTORY OF PRESENT ILLNESS GENERAL: HERE FOR FOLLOW-UP OF CHRONIC LOW BACK PAIN. CONTINUES TO BENEFIT FROM LEFT LUMBAR THERAPEUTIC BLOCK DONE IN DECEMBER. CHIEF COMPLAINT IS RIGHT LOW BACK PAIN THAT RADIATES INTO THE BUTTOCK AREA. PAIN IS AGGRAVATED WITH BENDING. PAIN IS RELIEVED SOMEWHAT AT REST. REVIEWED MRI OF THE LS SPINE AND DISCUSSED TREATMENT OPTIONS. -. FALL RISK SCREENING: SCREENING : NO FALLS REPORTED IN THE LAST YEAR. PAIN SCREENING: PATIENT HAS A COMPLAINT OF ACUTE OR CHRONIC PAIN :YES LOCATION OF PAIN:LOW BACK INTENSITY OF PAIN (SCALE OF 1 TO 10):6 WHAT DOES YOUR PAIN FEEL LIKE:BURNING, CONTINOUS DURATION:CONTINOUS, CONSTANT, ALL DAY PAIN IS INCREASED BY:OTHERS WALKING PAIN IS DECREASED BY:SITTING NURSING NOTE: -. PAIN CENTER INTAKE QUESTIONS: DO YOU HAVE A HISTORY OF MRSA? :NO DO YOU TAKE A BLOOD THINNERS? :NO DO YOU HAVE ANY BLEEDING DISORDERS? :NO ANY NEW NUMBNESS OR WEAKNESS IN YOUR LEGS OR ARMS? :YES BOTH HANDS MAINLY AT BEDTIME" ONE NIGHT IT COULD BE THE RIGHT AND ANOTHER NIGHT IT CAN BE THE OTHER HAND" ANY PACEMAKER,DEFIBRILLATOR, OR DORSAL COLUMN STIMULATOR? :NO DO YOU HAVE ANY RASHES OR OPEN SORES? :NO ARE YOU ALLERGIC TO IV DYE? :NO ARE YOU DIABETIC? :NO ANY NEW PROBLEMS WITH YOUR MEDICATIONS? :NO HAVE YOU RECEIVED A VACCINE IN THE PAST 30 DAYS? :NO DO YOU PLAN TO RECEIVE A VACCINE IN THE NEXT 21 DAYS? :NO DO YOU NEED ANY PRESCRIPTION? :NO DO YOU TAKE ANY IMMUNOSUPPRESSIVE MEDICATIONS? :NO IS THERE A CHANCE YOU COULD BE ? :NO ARE YOU BREAST FEEDING? :NO CURRENT MEDICATIONS TAKING BUSPIRONE HCL 15 MG TABLET 1 TABLET ORALLY TWICE A DAY TAKING KLONOPIN 0.5 MG TABLET 1 TABLET AT BEDTIME ORALLY BID TAKING PROPRANOLOL HCL ER 60 MG CAPSULE EXTENDED RELEASE 1 CAPSULE ORALLY ONCE A DAY AT BED TIME TAKING PANTOPRAZOLE SODIUM 20 MG TABLET DELAYED RELEASE 1 TABLET ORALLY ONCE A DAY TAKING SERTRALINE HCL 25 MG TABLET 1 TABLET ORALLY BID TAKING VITAMIN D 1000 UNIT CAPSULE 1 CAPSULE ORALLY ONCE A DAY NOT-TAKING BACLOFEN 10 MG TABLET 1 TABLET NEEDED ORALLY TWICE A DAY NEEDED, NOTES: NOT SURE DOSE NOT-TAKING TYLENOL 8 HOUR 650 MG TABLET EXTENDED RELEASE 2 TABLETS NEEDED ORALLY EVERY 8 HRS NOT-TAKING ONDANSETRON HCL 4 MG TABLET 1 TABLET ORALLY 1-3 TIMES A DAY NEEDED MEDICATION LIST REVIEWED AND RECONCILED WITH THE PATIENT PAST MEDICAL HISTORY PANIC ATTACKS/ ANXIEYY CHRONIC PAIN GERD OSTEO ARTHRITIS SLEEP APNEA BACK PAIN FALL ON 01/02/2021 NO MAJOR INJURIES 2ND COVID STOP 10/09/2020 ALLERGIES NO[ALLERGIES VERIFIED] SOCIAL HISTORY GENERAL: TOBACCO USE ARE YOU A:NONSMOKER LATEX QUESTIONNAIRE LATEX ALLERGY : HAVE YOU EVER DEVELOPED ANY TYPE OF REACTION AFTER HANDLING LATEX PRODUCTS SUCH RUBBER GLOVES, CONDOMS, DIAPHRAGMS, BALLOONS, SOCKS, OR UNDERWEAR?YES ADHESIVE TAPE - PLEASE INDICATE :OTHER (DOCUMENT IN NOTES) LATEX ALLERGY : HAVE YOU EVER DEVELOPED ANY TYPE OF REACTION DURING OR AFTER DENTAL APPOINTMENT, VAGINAL/RECTAL EXAMINATION, SURGICAL PROCEDURE, OR ANY OTHER EXPOSURE?NO LATEX RISK : HAVE YOU EVER HAD ANY DIFFICULTY BREATHING OR HIVES AFTER EATING OR HANDLING ANY FRUITS, OR VEGETABLES; SUCH KIWI, BANANAS, STONE FRUITS, OR CHESTNUTSNO LATEX RISK : DO YOU HAVE A PREVIOUS PERSONAL HISTORY OF MORE THAN NINE SURGERIES, SPINA BIFIDA, OR REPEATED CATHERIZATIONS? NO LATEX RISK : ARE YOU FREQUENTLY EXPOSED TO LATEX PRODUCTS IN YOUR OCCUPATION?NO DATE ASKED : 03/12/2021 ALCOHOL USE: YES, ONCE IN A WHILE WITH DINNER. ALCOHOL SCREENING DID YOU HAVE A DRINK CONTAINING ALCOHOL IN THE PAST YEAR?YES HOW OFTEN DID YOU HAVE A DRINK CONTAINING ALCOHOL IN THE PAST YEAR?TWO TO FOUR TIMES A MONTH (2 POINTS) HOW MANY DRINKS DID YOU HAVE ON A TYPICAL DAY WHEN YOU WERE DRINKING IN THE PAST YEAR?1 OR 2 (0 POINTS) POINTS2 INTERPRETATIONNEGATIVE RECREATIONAL DRUG USE DRUG USE?NO PATIENT DENIES ABUSE OR MISSUSED OF ANY MEDICATION DENIES ANY PAST HISTORY OR CURRENT USE OF RECREATIONAL DRUG USE CAFFEINE CAFFEINE USE?YES HOW OFTEN AND HOW MUCH? 1/DAY VOODOO VOODOO CHRISTIIAN LANGUAGE LANGUAGES SPOKEN:MALAY EDUCATION LEVEL OF EDUCATION:HIGH SCHOOL LEARNING BARRIERS / SPECIAL NEEDS CHANGE FROM LAST VISIT?NO BARRIERS TO LEARNING?NO NO BARRIERS HEARING IMPAIRED?NO VISION IMPAIRED?YES WEARS GLASSES :CORRECTIVE LENSES COGNITIVELY IMPAIRED?NO READINESS TO LEARN?YES LEARNING PREFERENCES?NO LEARNING CAPABILITIES PRESENT?YES EMOTIONAL BARRIERS?NO PT DOES HAVE ANXIETY SPECIAL DEVICES?YES CPAP :OTHER ORE TESTER NEEDED?NO DOMESTIC VIOLENCE DO YOU FEEL SAFE IN YOUR ENVIRONMENT?YES OCCUPATION: RETIRED [employer]. - HAS THE PATIENT BEEN EDUCATED REGARDING HIS/HER PLAN OF CARE?YES HAS THE PATIENT BEEN EDUCATED REGARDING PAIN, THE RISK FOR PAIN, THE IMPORTANCE OF EFFECTIVE PAIN MANAGEMENT, AND THE PAIN ASSESSMENT PROCESS?YES ADVANCE DIRECTIVE ADVANCE DIRECTIVE DISCUSSED WITH PATIENT:YES ROMY [phone] REVIEW OF SYSTEMS CONSTITUTIONAL: ANY RECENT FEVER NO . CHILLS NO . WEIGHT CHANGE OF UNKNOWN REASONS NO . GASTROENTEROLOGY: NEW UNEXPLAINABLE CHANGES IN BOWEL CONTROL NO . CONSTIPATION NO . GENITOURINARY: ANY NEW CHANGE IN BLADDER CONTROL? NO . NEUROLOGY: NEW ONSET DIZZINESS OR NEUROLOGICAL CHANGES NOT MENTIONED NO . NEW NUMBNESS OR PAIN PATTERNS NOT MENTIONED AND PERTINENT TO TODAY'S VISIT NO . CARDIOLOGY: NEW CHEST PRESSURE NO . PATIENT DENIES NO . RESPIRATORY: UNEXPLAINABLE COUGH NO . NEW SHORTNESS OF BREATH NO . VITAL SIGNS WT 241.4 LBS, WT-KG 109.5 KG, HT 65 IN, BMI 40.17 INDEX, BP 135/61 MM HG, HR 65 /MIN, RR 18 /MIN, TEMP 97.1 F, OXYGEN SAT % 96%, SAFE IN ENV? (Y/N) YES, NA INITIALS AW 1034T.BRAEDEN JOYCE. EXAMINATION GENERAL EXAMINATION: GENERAL AWAKE,ALERT ,PLEASANT . PSYCH AFFECT NORMAL . LUNGS: LUNG FLETCHER ARE CLEAR TO AUSCULTATION BILATERALLY. GOOD MOVEMENT OF AIR . HEART: S1, S2 IN A REGULAR RATE AND RHYTHM. NO SIGNIFICANT MURMURS, RUBS OR GALLOPS NOTED . LUMBAR:MARKED TENDERNESS NOTED OVER RIGHT LOWER LUMBAR FACETS L4-5,L5-S1 WITH FACET LOADING.. DIAGNOSTIC TESTS REVIEWED MRI L/S SPINE-06/27/2020. ASSESSMENTS SPONDYLOSIS WITHOUT MYELOPATHY OR RADICULOPATHY, LUMBAR REGION - M47.816 (PRIMARY) TREATMENT SPONDYLOSIS WITHOUT MYELOPATHY OR RADICULOPATHY, LUMBAR REGION MEDICATION: PAIN VALIUM TAB 5MG ORALLY (DIAZEPAM) (ORDERED FOR 03/26/2021)[id number] MEDICATION: PAIN OXYCODONE HCL TAB 5MG ORALLY (ORDERED FOR 03/26/2021)[id number] NOTES: RIGHT THERAPEUTIC LUMBAR FACET BLOCK L4-5,L5-S-1. PROCEDURE CODES FA211 ESTABILISHED PATIENT [facility] CHARGE DISPOSITION & COMMUNICATION FOLLOW UP POST (REASON: RIGHT THERAPEUTIC LUMBAR FACET BLOCK L4-5,L5-S-1) ELECTRONICALLY SIGNED BY SHIMA JUAREZ ON 03/12/2021 AT 03:55 PM EDT DISCLAIMER : THIS IS A VISIT SUMMARY EXTRACTED FROM THE [employer] CHART. IT IS NOT A COPY OF THE [employer] PROGRESS NOTE. VIKD
== END ==
LOC: M PAIN 10:15
PROVIDERS: ATTEND Nurse Practitioner Family
DX: M47.816 Spondylosis without myelopathy or radiculopathy, lumbar region (principal); G89.29 Other chronic pain; K21.9 Gastro-esophageal reflux disease without esophagitis; G47.30 Sleep apnea, unspecified; Z86.59 Personal history of other mental and behavioral disorders; E66.01 Morbid (severe) obesity due to excess calories; Z68.41 Body mass index [BMI] 40.0-44.9, adult; Z79.899 Other long term (current) drug therapy

== ENCOUNTER → 2021-03-20 | Outpatient (CLI) | payer MEDICARE | LOC: M LABSMTC 09:51 | PROVIDERS: ATTEND Anesthesiology | DX: Z01.812 Encounter for preprocedural laboratory examination (principal); Z20.822 Contact with and (suspected) exposure to COVID-19 ==

== ENCOUNTER → 2021-03-25 | Outpatient (CLI) | payer MEDICARE ==
[~2021-03-25] MED LIST changes: +BUPIVACAINE HCL 0.25% 10ML VIAL As Ordered ONE; +BUPIVACAINE HCL 0.25% 30ML VIAL As Ordered ONE; +TRIAMCINOLONE ACETONIDE SUSP 40 MG/ML VIAL (J3301) As Ordered ONE; +diazePAM 5MG TABLET As Ordered ONE; +oxyCODONE 5MG TAB As Ordered ONE
== END ==
LOC: M PAIN 11:00
PROVIDERS: ATTEND Anesthesiology
DX: M79.18 Myalgia, other site (principal); K21.9 Gastro-esophageal reflux disease without esophagitis; G47.30 Sleep apnea, unspecified; Z86.59 Personal history of other mental and behavioral disorders; Z79.899 Other long term (current) drug therapy
CPT/HCPCS: 20552; J3301

== ENCOUNTER → 2021-04-16 | Outpatient (CLI) | payer MEDICARE ==
[~2021-04-16] MED LIST changes: -BUPIVACAINE HCL 0.25% 10ML VIAL As Ordered ONE; -BUPIVACAINE HCL 0.25% 30ML VIAL As Ordered ONE; -TRIAMCINOLONE ACETONIDE SUSP 40 MG/ML VIAL (J3301) As Ordered ONE; -diazePAM 5MG TABLET As Ordered ONE; -oxyCODONE 5MG TAB As Ordered ONE
== END ==
LOC: M PAIN 09:00
PROVIDERS: ATTEND Anesthesiology
DX: G89.29 Other chronic pain (principal); M47.816 Spondylosis without myelopathy or radiculopathy, lumbar region; F41.0 Panic disorder [episodic paroxysmal anxiety]; K21.9 Gastro-esophageal reflux disease without esophagitis; M19.90 Unspecified osteoarthritis, unspecified site; G47.30 Sleep apnea, unspecified; Z79.899 Other long term (current) drug therapy

== ENCOUNTER → 2021-04-24 | Outpatient (CLI) | payer MEDICARE | LOC: M LABSMTC 10:08 | PROVIDERS: ATTEND Anesthesiology | DX: Z01.812 Encounter for preprocedural laboratory examination (principal); Z20.822 Contact with and (suspected) exposure to COVID-19 ==

== ENCOUNTER → 2021-04-29 | Outpatient (CLI) | payer MEDICARE ==
[~2021-04-29] MED LIST changes: +BUPIVACAINE HCL 0.25% 30ML VIAL As Ordered ONE; +ISOVUE-M 300 61% 15ML VIAL As Ordered ONE; +LIDOCAINE 1% SDV 30ML VIAL As Ordered ONE
--- NOTE | 2021-04-29 12:19 | REP ---
INDICATION: LEFT LFBD#1. COMPARISON: None. TECHNIQUE: A single views. 22.1 seconds of fluoroscopy time is reported. FINDINGS: A single last image hold fluoroscopically obtained spot radiograph(s) of the lumbar spine document(s) needle position(s) and contrast injection associated with injection procedure. IMPRESSION: Procedural imaging. <Electronically signed by Juan Wagner > 04/29/21 [id number]
== END ==
LOC: M PAIN 11:00
PROVIDERS: ATTEND Anesthesiology
DX: M47.816 Spondylosis without myelopathy or radiculopathy, lumbar region (principal); G47.30 Sleep apnea, unspecified; K21.9 Gastro-esophageal reflux disease without esophagitis; Z86.59 Personal history of other mental and behavioral disorders; Z79.82 Long term (current) use of aspirin; Z79.899 Other long term (current) drug therapy
CPT/HCPCS: 64493; 64494; Q9967

== ENCOUNTER → 2021-05-08 | Outpatient (CLI) | payer MEDICARE ==
[~2021-05-08] MED LIST changes: -BUPIVACAINE HCL 0.25% 30ML VIAL As Ordered ONE; -ISOVUE-M 300 61% 15ML VIAL As Ordered ONE; -LIDOCAINE 1% SDV 30ML VIAL As Ordered ONE
--- NOTE | 2021-05-08 10:36 | DEXAMM ---
INDICATION: DISORDER OF BONE DENSITY AND STRUCTURE. COMPARISON: CT June 27, 2018. TECHNIQUE: Bone density was measured using dual-energy x-ray absorptionmetry (DEXA). FINDINGS: AP SPINE L1-L4 BMD 1.201 g/cm2 Young Adult T-Score 0.1 Age Matched Z-Score 1.8. LT FEMUR, TOTAL BMD 0.902 g/cm2 Young Adult T-Score -0.8 Age Matched Z-Score 0.7. LT NECK BMD 0.743 g/cm2 Young Adult T-Score -2.1 Age Matched Z-Score -0.3. RT FEMUR, TOTAL BMD 0.946 g/cm2 Young Adult T-Score -0.5 Age Matched Z-Score 1.1. RT NECK BMD 0.764 g/cm2 Young Adult T-Score -2.0 Age Matched Z-Score -0.2. IMPRESSION: There is normal bone density of the spine. There is low bone density of the left hip. There is low bone density of the right hip. The density of the spine has increased 8.0% since the initial exam on March 24, 2006. The density of the spine increased 6.8% since most recent exam on June 27, 2018. The density of the left hip has decreased 14.1% since initial exam on March 24, 2006. The density of the left hip has decreased 5.9% since most recent exam on June 27, 2018. The density of the right hip has decreased 9.3% since the initial exam on March 24, 2006. The density of the right hip has decreased 2.9% since the most recent exam on June 27, 2018. FOLLOW-UP: Recommendation for the next bone density exam: 2 years. <Electronically signed by Juan Wagner > 05/08/21 [id number]
== END ==
LOC: M WHC 09:25
PROVIDERS: ATTEND Internal Medicine
DX: Z12.31 Encounter for screening mammogram for malignant neoplasm of breast (principal); M85.851 Other specified disorders of bone density and structure, right thigh; M85.852 Other specified disorders of bone density and structure, left thigh; Z53.9 Procedure and treatment not carried out, unspecified reason

== ENCOUNTER → 2021-06-17 | Outpatient (CLI) | payer MEDICARE ==
--- NOTE | 2021-06-17 15:43 | REPMRS ---
Patient History The patient states she had a clinical breast exam in 2020. Patient is postmenopausal. Family history of breast cancer at age 50 or over in maternal aunt. Benign lumpectomy of the right breast. Took estrogen for 2 years. Tomosynthesis is performed. Volpara breast density is a. [facility] lifetime risk of breast cancer 5.7%. Patient states no breast complaints today. Patient has signed MRS History Sheet. Digital Woman Screen Mammo: June 17, 2021 - Exam #: [id number] Bilateral CC and MLO view(s) were taken. Technologist: Chapis Alcala Estimating Manager Prior study comparison: June 12, 2020, bilateral digital woman screen mammo performed at [facility], [place]. July 03, 2019, bilateral digital woman screen mammo performed at [facility], [place]. FINDINGS: There are scattered fibroglandular densities. There has been no change in the appearance of the mammogram from the prior studies. There is a mild amount of residual fibroglandular tissue which is fairly symmetric. There is no interval development of dominant mass, architectural distortion, or clustered microcalcification suggestive of malignancy. Assessment: BI-RADS/ACR category 1 mammogram. Negative Mammogram. Recommendation Routine screening mammogram in 1 year (for women over age 40). This mammogram was interpreted with the aid of an FDA-approved computer-aided dectection system. Electronically Signed By: Wisam Phillips MD 06/17/21 [id number]
== END ==
LOC: M WHC 12:11
PROVIDERS: ATTEND Internal Medicine
DX: Z12.31 Encounter for screening mammogram for malignant neoplasm of breast (principal); Z78.0 Asymptomatic menopausal state; Z92.23 Personal history of estrogen therapy; Z80.3 Family history of malignant neoplasm of breast

== ENCOUNTER → 2021-06-20 | Outpatient (CLI) | payer MEDICARE | LOC: M PAIN 09:45 | PROVIDERS: ATTEND Anesthesiology | DX: M47.816 Spondylosis without myelopathy or radiculopathy, lumbar region (principal); G89.29 Other chronic pain; G47.30 Sleep apnea, unspecified; K21.9 Gastro-esophageal reflux disease without esophagitis; Z86.59 Personal history of other mental and behavioral disorders; E66.01 Morbid (severe) obesity due to excess calories; Z68.41 Body mass index [BMI] 40.0-44.9, adult; Z79.82 Long term (current) use of aspirin; Z79.899 Other long term (current) drug therapy ==

== ENCOUNTER → 2021-06-25 | Outpatient (REF) | payer MEDICARE ==
[2021-06-25 17:09] LABS: C REACTIVE PROTEIN QUANTITATIV 1.24 MG/DL (0.00-0.30); RHEUMATOID FACTOR QUANT < 10.0 IU/ML (<15.0)
== END ==
LOC: M LAB REF 16:26
PROVIDERS: ATTEND Internal Medicine
DX: M25.50 Pain in unspecified joint (principal)

== ENCOUNTER → 2021-09-23 | Outpatient (CLI) | payer MEDICARE | LOC: M WUC 11:34 | PROVIDERS: ATTEND Internal Medicine | DX: R07.82 Intercostal pain (principal) ==

== ENCOUNTER → 2021-10-28 | Outpatient (REF) | payer MEDICARE ==
[2021-10-28 13:35] LABS: C REACTIVE PROTEIN QUANTITATIV 1.03 MG/DL (0.00-0.30); TOTAL PROTEIN 6.9 GM/DL (6.4-8.2)
[2021-10-29 13:13] LABS: ALBUMIN 4.08 GM/DL (3.29-5.55); ALBUMIN % 59.1 % (55.8-66.1); ALPHA-1-GLOBULIN % 4.9 % (2.9-4.9); ALPHA-1-GLOBULINS 0.34 GM/DL (0.17-0.41); ALPHA-2-GLOBULINS 0.77 GM/DL (0.42-0.99); ALPHA-2-GLOBULINS % 11.2 % (7.1-11.8); BETA-1-GLOBULINS 0.41 GM/DL (0.28-0.60); BETA-1-GLOBULINS % 5.9 % (4.7-7.2); BETA-2-GLOBULINS 0.32 GM/DL (0.19-0.55); BETA-2-GLOBULINS % 4.7 % (3.2-6.5); GAMMA GLOBULIN % 14.2 % (11.1-18.8); GAMMA GLOBULINS 0.98 GM/DL (0.65-1.58)
== END ==
LOC: M LAB REF 12:35
PROVIDERS: ATTEND Internal Medicine
DX: M25.50 Pain in unspecified joint (principal); N18.31 Chronic kidney disease, stage 3a

== ENCOUNTER → 2021-12-01 | Outpatient (REF) | payer MEDICARE | LOC: M LAB REF 16:18 | PROVIDERS: ATTEND Internal Medicine | DX: N39.0 Urinary tract infection, site not specified (principal) ==

== ENCOUNTER → 2022-01-03 | Outpatient (CLI) | payer MEDICARE ==
[~2022-01-03] MED LIST changes: +BACL5TAB2 PO; +BUSP15TA47 PO; +CLON0.5T2 PO; +D200CAP3 PO; +DULO1CAP6 PO; +OCUVTAB4 PO; +ONDA-83 PO; +PANT20TA6 PO; +PROP80CA PO
== END ==
LOC: M LABSMTC 10:15
PROVIDERS: ATTEND Anesthesiology
DX: Z01.812 Encounter for preprocedural laboratory examination (principal); Z20.822 Contact with and (suspected) exposure to COVID-19

== ENCOUNTER 2022-01-08 09:31 | Day surgery (SDC) | payer MEDICARE ==
[~2022-01-08] VITALS: Ht 165.1 cm; Wt 106.1 kg
[~2022-01-08 09:31] MED LIST changes: +NS 1,000 ML IV ONE
[2022-01-08] MEDS ORDERED: propofoL 200 MG/20 ML VIAL As Ordered ONE (12:04)
[2022-01-08] MEDS ORDERED: LIDOCAINE 2% 100MG/5ML SDV (FOR ANES.) As Ordered ONE (12:04)
[2022-01-08 12:40] VITALS: BP 132/65
== END 2022-01-08 12:42 | disposition home or self-care (01) ==
LOC: M OPP 09:31
PROVIDERS: ATTEND Surgery
DX: R19.5 Other fecal abnormalities (principal); D12.6 Benign neoplasm of colon, unspecified; K57.30 Diverticulosis of large intestine without perforation or abscess without bleeding; K64.8 Other hemorrhoids; G47.33 Obstructive sleep apnea (adult) (pediatric); Z99.89 Dependence on other enabling machines and devices; Z87.440 Personal history of urinary (tract) infections; Z79.899 Other long term (current) drug therapy

== ENCOUNTER → 2022-03-18 | Outpatient (REF) | payer MEDICARE ==
[~2022-03-18] MED LIST changes: -NS 1,000 ML IV ONE
[2022-03-18 12:48] LABS: BASO # 0.1 10^3/uL (0.0-0.2); BASO % 0.8 % (0.0-1.0); EOS # 0.1 10^3/uL (0.0-0.5); EOS % 0.9 % (0.0-3.0); HEMATOCRIT 41.9 % (36.0-47.0); HEMOGLOBIN 13.3 g/dl (12.0-15.5); LYMPH # 1.8 10^3/uL (1.5-5.0); LYMPH % 18.7 % (24.0-44.0); MEAN CORPUSCULAR HEMOGLOBIN 28.1 pg (27.0-33.0); MEAN CORPUSCULAR HGB CONC 31.7 g/dl (32.0-36.5); MEAN CORPUSCULAR VOLUME 88.4 fl (80.0-96.0); MONO # 0.6 10^3/uL (0.0-0.8); MONO % 5.9 % (2.0-8.0); NEUTROPHILS # 7.2 10^3/uL (1.5-8.5); NEUTROPHILS % 73.2 % (36.0-66.0); PLATELET COUNT, AUTOMATED 321 10^3/uL (150-450); RED BLOOD COUNT 4.74 10^6/uL (4.00-5.40); WHITE BLOOD COUNT 9.9 10^3/uL (4.0-10.0)
[2022-03-18 13:43] LABS: ERYTHROCYTE SEDIMENTATION RATE 36 mm/hr (0-30)
[2022-03-18 14:03] LABS: ALBUMIN 3.6 GM/DL (3.2-5.2); BILIRUBIN,TOTAL 0.4 MG/DL (0.2-1.0); C REACTIVE PROTEIN QUANTITATIV 1.37 MG/DL (0.00-0.30); CALCIUM LEVEL 9.5 MG/DL (8.8-10.2); CREATININE FOR GFR 1.08 MG/DL (0.55-1.30); GLOMERULAR FILTRATION RATE 53.1 (>39); POTASSIUM SERUM 4.6 MEQ/L (3.5-5.1); TOTAL PROTEIN 7.2 GM/DL (6.4-8.2)
== END ==
LOC: M SFHCRHEU 08:52
PROVIDERS: ATTEND Internal Medicine Rheumatology
DX: M35.3 Polymyalgia rheumatica (principal); R79.82 Elevated C-reactive protein (CRP); R53.83 Other fatigue

== ENCOUNTER → 2022-03-23 | Outpatient (CLI) | payer MEDICARE | LOC: M WUC 10:48 | PROVIDERS: ATTEND Internal Medicine Rheumatology | DX: M35.3 Polymyalgia rheumatica (principal); R79.82 Elevated C-reactive protein (CRP); R53.83 Other fatigue; M25.742 Osteophyte, left hand; M25.741 Osteophyte, right hand; M77.31 Calcaneal spur, right foot ==

== ENCOUNTER → 2022-05-04 | Outpatient (REF) | payer MEDICARE | LOC: M LAB REF 11:51 | PROVIDERS: ATTEND Internal Medicine | DX: N18.31 Chronic kidney disease, stage 3a (principal) ==

== ENCOUNTER → 2022-06-30 | Outpatient (CLI) | payer MEDICARE | LOC: M WHC 08:21 | PROVIDERS: ATTEND Internal Medicine | DX: Z12.31 Encounter for screening mammogram for malignant neoplasm of breast (principal) ==

== ENCOUNTER → 2022-10-16 | Outpatient (REF) | payer MEDICARE | LOC: M LAB REF 12:10 | PROVIDERS: ATTEND Internal Medicine | DX: R79.82 Elevated C-reactive protein (CRP) (principal) ==

== ENCOUNTER → 2023-07-05 | Outpatient (CLI) | payer MEDICARE | LOC: M WHC 10:23 | PROVIDERS: ATTEND Internal Medicine | DX: Z12.31 Encounter for screening mammogram for malignant neoplasm of breast (principal) ==

== ENCOUNTER → 2024-04-17 | Outpatient (REF) | payer MEDICARE ==
[~2024-04-17] MED LIST changes: -KLON0.5T PO; +KLON0.5T8 PO
== END ==
LOC: M LAB REF 16:38
PROVIDERS: ATTEND Internal Medicine
DX: M54.50 Low back pain, unspecified (principal)

== ENCOUNTER → 2024-04-21 | Outpatient (REF) | payer MEDICARE | LOC: M LAB REF 16:55 | PROVIDERS: ATTEND Internal Medicine | DX: M54.50 Low back pain, unspecified (principal) ==

== ENCOUNTER → 2024-04-24 | Outpatient (REF) | payer MEDICARE | LOC: M LAB REF 16:24 | PROVIDERS: ATTEND Internal Medicine | DX: N18.31 Chronic kidney disease, stage 3a (principal) ==

== ENCOUNTER → 2024-05-15 | Outpatient (REF) | payer MEDICARE | LOC: M LAB REF 16:18 | PROVIDERS: ATTEND Internal Medicine | DX: R79.82 Elevated C-reactive protein (CRP) (principal); R70.0 Elevated erythrocyte sedimentation rate ==

== ENCOUNTER → 2024-05-31 | Outpatient (REF) | payer MEDICARE | LOC: M LAB REF 13:04 | PROVIDERS: ATTEND Internal Medicine | DX: R10.9 Unspecified abdominal pain (principal); R53.83 Other fatigue; R06.00 Dyspnea, unspecified ==

== ENCOUNTER 2024-06-09 11:55 | Inpatient (IN) | payer MEDICARE ==
[~2024-06-09] VITALS: Ht 165.1 cm; Wt 103.0 kg
[~2024-06-09 11:55] MED LIST changes: -ALBU2.5V10 INH; -METF-838 PO; -METO1TAB32 PO; -PRESCAP PO; -RA T500C2 PO
[2024-06-09 12:55] LABS: VENOUS BASE EXCESS 2.6 (-2.0-2.0); VENOUS HCO3 29.8 MMOL/L (23.0-27.0); VENOUS O2 SATURATION 53.3 % (60.0-80.0); VENOUS PH 7.344 UNITS (7.330-7.430); VENOUS STANDARD HCO3 25.6 MMOL/L; VENOUS TOTAL CO2 31.5 MMOL/L (24.0-28.0)
[2024-06-09 13:02] LABS: BASO # 0.1 10^3/uL (0.0-0.2); BASO % 0.6 % (0.0-1.0); EOS # 0.1 10^3/uL (0.0-0.5); EOS % 0.8 % (0.0-3.0); HEMATOCRIT 45.5 % (36.0-47.0); HEMOGLOBIN 14.5 g/dl (12.0-15.5); LYMPH # 1.4 10^3/uL (1.5-5.0); LYMPH % 10.2 % (24.0-44.0); MEAN CORPUSCULAR HGB CONC 31.9 g/dl (32.0-36.5); MEAN CORPUSCULAR VOLUME 84.7 fl (80.0-96.0); MONO # 0.6 10^3/uL (0.0-0.8); MONO % 4.1 % (2.0-8.0); NEUTROPHILS # 11.7 10^3/uL (1.5-8.5); NEUTROPHILS % 83.6 % (36.0-66.0); PLATELET COUNT, AUTOMATED 423 10^3/uL (150-450); RED BLOOD COUNT 5.37 10^6/uL (4.00-5.40); WHITE BLOOD COUNT 13.9 10^3/uL (4.0-10.0)
[2024-06-09 13:20] LABS: ALBUMIN 3.6 G/DL (3.2-5.2); ALKALINE PHOSPHATASE 61 U/L (35-104); ALT/SGPT 13 U/L (7.0-40); AST/SGOT 17 U/L (<34); BILIRUBIN,DIRECT < 0.1 MG/DL (<0.4); BILIRUBIN,TOTAL 0.4 MG/DL (0.3-1.2); BLOOD UREA NITROGEN 22 MG/DL (9-23); CALCIUM LEVEL 9.9 MG/DL (8.3-10.6); CARBON DIOXIDE LEVEL 30 MMOL/L (20-31); CHLORIDE LEVEL 102 MMOL/L (98-107); CREATININE FOR GFR 0.82 MG/DL (0.55-1.30); GLOMERULAR FILTRATION RATE > 60.0 (>39); GLUCOSE, FASTING 99 MG/DL (74-106); SODIUM LEVEL 140 MMOL/L (136-145); TOTAL PROTEIN 7.2 G/DL (5.7-8.2)
[2024-06-09 13:23] LABS: THYROID STIMULATING HORMONE 3.663 uIU/ML (0.55-4.78)
[2024-06-09] MEDS ORDERED: ISOVUE-370 76% 100ML VIAL As Ordered ONE (13:36)
[2024-06-09] MEDS ORDERED: RA T500C2 PO (13:41)
[2024-06-09] MEDS ORDERED: METO1TAB32 PO (13:41)
[2024-06-09] MEDS ORDERED: ALBU2.5V10 INH (13:41)
[2024-06-09] MEDS ORDERED: METF-838 PO (13:41)
[2024-06-09] MEDS ORDERED: PRESCAP PO (13:43)
[2024-06-09] MEDS ORDERED: HOME MED LIST COMPLETE! XX SCH (13:50)
[2024-06-09] MEDS: MECLIZINE 25 MG TABLET PO ONE ×2 (14:05→21:20)
[2024-06-09] MEDS: ONDANSETRON 4MG 2ML VIAL IV ONE (14:05)
[2024-06-09] MEDS ORDERED: ACETAMINOPHEN 325 MG TAB PO PRN (16:00)
[2024-06-09] MEDS ORDERED: MOM 30ML SUSPENSION UDC PO PRN (16:00)
[2024-06-09] MEDS ORDERED: MAALOX 30 ML SUSP *UDC PO PRN (16:00)
[2024-06-09 16:54] VITALS: BP 93/65; TEMP 98.6; O2SAT 92
[2024-06-09] MEDS ORDERED: LIDOCAINE 1% MDV 20ML VIAL As Ordered ONE (16:58)
[2024-06-09 17:41] VITALS: BP 161/78; O2SAT 92
[2024-06-09] MEDS: LIDOCAINE 1% MDV 20ML VIAL SC ONE (17:54)
[2024-06-09 17:56] LABS: CARCINOEMBRYONIC ANTIGEN < 2.0 NG/ML (<2.5)
[2024-06-09 18:00] LABS: LDH LACTATE DEHYDROGENASE 222 U/L (120-246)
[2024-06-09 18:01] LABS: PROCALCITONIN 0.09 ng/ml
[2024-06-09 18:10] LABS: CA19-9 TUMOR MARKER,CARBOHYDRA 12.2 U/ML (<35.0)
[2024-06-09 19:12] LABS: SOURCE, BODY FLUID PLEURAL
[2024-06-09 19:13] LABS: APPEARANCE, BODY FLUID HAZY (CLEAR); PLEURAL FL COLOR YELLOW (COLORLESS)
[2024-06-09 19:27] LABS: PH BODY FLUID 7.472 UNITS (NOT ESTABLISHED); SOURCE, BODY FLUID pH PLEURAL
[2024-06-09 19:30] LABS: SOURCE, BODY FLUID GLUCOSE PLEURAL
[2024-06-09 19:31] LABS: LDH, BODY FLUID 165 U/L (NOT ESTABLISHED); SOURCE, BODY FLUID LDH PLEURAL
[2024-06-09 19:32] LABS: AMYLASE, BODY FLUID 47 U/L (NOT ESTABLISHED); SOURCE, BODY FLUID AMYLASE PLEURAL
[2024-06-09 20:16] LABS: SOURCE, BODY FLUID TOT PROTEIN PLEURAL; TOTAL PROTEIN, BODY FLUID 5.2 G/DL (NOT ESTABLISHED)
[2024-06-09 20:34] VITALS: BP 144/68; TEMP 97.3; O2SAT 93
[2024-06-09] MEDS: DOCUSATE SODIUM 100MG CAPSULE PO SCH (20:39)
[2024-06-09] MEDS: busPIRone 5 MG TAB PO SCH (21:20)
[2024-06-10] VITALS (7 sets, daily range): BP systolic 138–158; BP diastolic 67–91; TEMP 96.8–97.4; O2SAT 91–95
[2024-06-10 04:28] LABS: BASO # 0.1 10^3/uL (0.0-0.2); BASO % 0.5 % (0.0-1.0); EOS # 0.2 10^3/uL (0.0-0.5); EOS % 1.3 % (0.0-3.0); HEMATOCRIT 42.2 % (36.0-47.0); HEMOGLOBIN 13.2 g/dl (12.0-15.5); LYMPH # 1.9 10^3/uL (1.5-5.0); LYMPH % 15.1 % (24.0-44.0); MEAN CORPUSCULAR HEMOGLOBIN 26.4 pg (27.0-33.0); MEAN CORPUSCULAR HGB CONC 31.3 g/dl (32.0-36.5); MEAN CORPUSCULAR VOLUME 84.4 fl (80.0-96.0); MONO # 0.8 10^3/uL (0.0-0.8); MONO % 6.4 % (2.0-8.0); NEUTROPHILS # 9.7 10^3/uL (1.5-8.5); NEUTROPHILS % 76.2 % (36.0-66.0); PLATELET COUNT, AUTOMATED 376 10^3/uL (150-450); WHITE BLOOD COUNT 12.7 10^3/uL (4.0-10.0)
[2024-06-10 04:53] LABS: ALBUMIN 3.3 G/DL (3.2-5.2); ALKALINE PHOSPHATASE 59 U/L (35-104); ALT/SGPT 10 U/L (7.0-40); AST/SGOT 8 U/L (<34); BILIRUBIN,TOTAL 0.5 MG/DL (0.3-1.2); BLOOD UREA NITROGEN 20 MG/DL (9-23); CALCIUM LEVEL 9.6 MG/DL (8.3-10.6); CARBON DIOXIDE LEVEL 32 MMOL/L (20-31); CHLORIDE LEVEL 103 MMOL/L (98-107); CREATININE FOR GFR 0.88 MG/DL (0.55-1.30); GLOMERULAR FILTRATION RATE > 60.0 (>39); GLUCOSE, FASTING 104 MG/DL (74-106); MAGNESIUM LEVEL 1.9 MG/DL (1.8-2.4); POTASSIUM SERUM 4.3 MMOL/L (3.5-5.1); SODIUM LEVEL 139 MMOL/L (136-145); TOTAL PROTEIN 6.6 G/DL (5.7-8.2)
[2024-06-10] MEDS: DULoxetine 30MG CAPSULE (CYMBALTA) PO SCH (09:08)
[2024-06-10] MEDS: ENOXAPARIN 40MG/0.4ML SYRINGE (J1650 PER 10MG) SC SCH (09:08)
[2024-06-10] MEDS: clonazePAM 0.5 MG TAB PO PRN (09:09)
[2024-06-10] MEDS ORDERED: ALBUTEROL SULFATE 2.5MG/0.5ML INH NEB SOLN INH PRN (09:20)
[2024-06-10] MEDS: ONDANSETRON 4MG TAB PO PRN (09:43)
[2024-06-10] MEDS: MECLIZINE 25 MG TABLET PO PRN (10:00)
[2024-06-10] MEDS: PANTOPRAZOLE 20 MG TAB PO SCH (10:00)
[2024-06-10] MEDS: METOPROLOL SUCC *XL* 25MG TAB (TopROL *XL*) PO SCH (10:01)
[2024-06-10] MEDS ORDERED: BACLOFEN 10 MG TAB PO SCH (21:00)
== END 2024-06-10 14:54 | disposition home or self-care (01) | DRG 755 ==
LOC: M ED 11:55 → EDBD 11:55 → M ED INP 15:59 → M ICU 16:50
PROVIDERS: ADMIT Internal Medicine; ATTEND Internal Medicine
PROC: 0W9B3ZZ Drainage of Left Pleural Cavity, Percutaneous Approach (ICD-10-PCS; principal; 2024-06-09)
DX: C56.9 Malignant neoplasm of unspecified ovary (principal); J91.0 Malignant pleural effusion; I10 Essential (primary) hypertension; G47.33 Obstructive sleep apnea (adult) (pediatric); K21.9 Gastro-esophageal reflux disease without esophagitis; M54.59 Other low back pain; M19.90 Unspecified osteoarthritis, unspecified site; F41.0 Panic disorder [episodic paroxysmal anxiety]; R11.0 Nausea; R42 Dizziness and giddiness; R10.2 Pelvic and perineal pain

== ENCOUNTER → 2024-06-09 | Outpatient (CLI) | payer MEDICARE ==
[~2024-06-09] MED LIST changes: +ALBU2.5V10 INH; +METF-838 PO; +METO1TAB32 PO; +PRESCAP PO; +RA T500C2 PO
== END ==
LOC: M PLAIMG 09:27
PROVIDERS: ATTEND Internal Medicine
DX: R06.00 Dyspnea, unspecified (principal)

== ENCOUNTER → 2024-07-21 | Outpatient (REF) | payer MEDICARE ==
[~2024-07-21] MED LIST changes: +ALBU2.5V10 INH; +METF-838 PO; +METO1TAB32 PO; +PRESCAP PO; +RA T500C2 PO
== END ==
LOC: M LAB REF 16:31
PROVIDERS: ATTEND Internal Medicine
DX: R53.83 Other fatigue (principal); M54.50 Low back pain, unspecified

== ENCOUNTER 2024-08-24 12:43 | Observation (INO) | payer MEDICARE ==
[2024-08-24] MEDS: NS (Normal Saline) 0.9% 1,000 ML IV ONE (12:55)
[2024-08-24 13:09] LABS: VENOUS BASE EXCESS -12.8 (-2.0-2.0); VENOUS HCO3 16.4 MMOL/L (23.0-27.0); VENOUS O2 SATURATION 76.5 % (60.0-80.0); VENOUS PARTIAL PRESSURE CO2 50.1 mmHg (38.0-50.0); VENOUS PARTIAL PRESSURE O2 49.4 mmHg (30.0-50.0); VENOUS PH 7.134 UNITS (7.330-7.430); VENOUS STANDARD HCO3 14.4 MMOL/L
[2024-08-24] MEDS: NS 0.9% IV ONE (13:10)
[2024-08-24] MEDS: [UNRECOGNIZED DRUG - OTHER] IV ONE (13:10)
[2024-08-24 13:12] LABS: HEMATOCRIT 49.9 % (36.0-47.0); HEMOGLOBIN 15.5 g/dl (12.0-15.5); MEAN CORPUSCULAR HEMOGLOBIN 26.2 pg (27.0-33.0); MEAN CORPUSCULAR HGB CONC 31.1 g/dl (32.0-36.5); MEAN CORPUSCULAR VOLUME 84.3 fl (80.0-96.0); PLATELET COUNT, AUTOMATED 527 10^3/uL (150-450); RED BLOOD COUNT 5.92 10^6/uL (4.00-5.40); WHITE BLOOD COUNT 8.1 10^3/uL (4.0-10.0)
[2024-08-24] MEDS: NOREPINEPHRINE 4MG IN D5 250ML 4 MG in IV 1 EA IV SCH (13:38)
[2024-08-24 13:43] LABS: ALBUMIN 2.7 G/DL (3.2-5.2); BILIRUBIN,DIRECT 0.3 MG/DL (<0.4); BILIRUBIN,TOTAL 0.6 MG/DL (0.3-1.2); CALCIUM LEVEL 10.1 MG/DL (8.3-10.6); CREATININE FOR GFR 3.04 MG/DL (0.55-1.30); GLOMERULAR FILTRATION RATE 15.9 (>39); POTASSIUM SERUM 5.2 MMOL/L (3.5-5.1); TOTAL PROTEIN 6.2 G/DL (5.7-8.2)
[2024-08-24 13:47] LABS: THYROID STIMULATING HORMONE 3.132 uIU/ML (0.55-4.78)
[2024-08-24] MEDS: HYDROCORTISONE 100MG/2ML VIAL IV ONE (14:34)
[2024-08-24] MEDS: PIPERACILLIN/TAZOBACTAM SOD 4.5 GM in DEXTROSE 5% (D5W) ADV/MINI-BAG 50 ML IV ONE (14:35)
[2024-08-24 14:53] LABS: ATYPICAL LYMPH 1 % (0-5); LYMPHOCYTES 19 % (16-44); METAMYELOCYTES 9 % (0-0); MONOCYTES 11 % (0-5); NEUTROPHILS 30 % (28-66); PLATELET ESTIMATE INCREASED (NORMAL)
[2024-08-24 14:56] LABS: PLATELET CLUMPS SMALL AMT; TOXIC VACUOLATION 1+
[2024-08-24 14:58] LABS: GIANT PLATELETS 1+
[2024-08-24 15:24] VITALS: BP 117/69
[2024-08-24 15:45] VITALS: O2SAT 88
[2024-08-24] MEDS: MORPHINE 2 MG/ML 1ML VIAL IV ONE (16:24)
[2024-08-24] MEDS ORDERED: HYOSCYAMINE SULFATE 0.125 MG SUBL TABLET PO PRN (16:25)
[2024-08-24] MEDS ORDERED: ATROPINE SULFATE 1% OPHTH SOLN 2ML BTL SL PRN (16:25)
[2024-08-24] MEDS ORDERED: ACETAMINOPHEN 325 MG TAB PO PRN (16:25)
[2024-08-24] MEDS ORDERED: BISACODYL 10MG SUPP PR PRN (16:25)
[2024-08-24] MEDS ORDERED: SCOPOLAMINE 1MG TRANSDERMAL PATCH TOP PRN (16:25)
[2024-08-24] MEDS ORDERED: ONDANSETRON 4MG ORAL DISINTEGRATING TAB PO PRN (16:25)
[2024-08-24] MEDS ORDERED: ONDANSETRON 4MG 2ML VIAL IV PRN (16:25)
[2024-08-24] MEDS ORDERED: LORazepam 1 MG TAB PO PRN (16:25)
[2024-08-24] MEDS ORDERED: MORPHINE 10MG/0.5ML ORAL CONCENTRATE SOLUTION U/D SL PRN (16:25)
[2024-08-24] MEDS ORDERED: FLEET ENEMA PR PRN (16:25)
[2024-08-24] MEDS ORDERED: ACETAMINOPHEN 650MG SUPP PR PRN (16:25)
[2024-08-24] MEDS: ATROPINE SULFATE 1% OPHTH SOLN 2ML BTL SL PRN (16:39)
[2024-08-24] MEDS: LORazepam 2 MG/ML 1ML VIAL IV PRN (17:05)
[2024-08-24] MEDS: MORPHINE 2 MG/ML 1ML VIAL IV PRN (17:53)
== END 2024-08-24 20:09 | disposition expired ==
LOC: EDBD 12:43 → M ED 12:43 → M ED INP 12:44
PROVIDERS: ADMIT Internal Medicine; ATTEND Internal Medicine
DX: A41.9 Sepsis, unspecified organism (principal); Z66 Do not resuscitate; G47.33 Obstructive sleep apnea (adult) (pediatric); F41.9 Anxiety disorder, unspecified; M54.9 Dorsalgia, unspecified; G89.29 Other chronic pain; K21.9 Gastro-esophageal reflux disease without esophagitis; J91.0 Malignant pleural effusion; J18.9 Pneumonia, unspecified organism; J98.11 Atelectasis; R65.21 Severe sepsis with septic shock; G93.41 Metabolic encephalopathy; J96.01 Acute respiratory failure with hypoxia; E87.20 Acidosis, unspecified; D69.6 Thrombocytopenia, unspecified; E87.5 Hyperkalemia; N17.9 Acute kidney failure, unspecified; R74.01 Elevation of levels of liver transaminase levels; Z51.5 Encounter for palliative care; Z79.84 Long term (current) use of oral hypoglycemic drugs; Z79.899 Other long term (current) drug therapy; C56.9 Malignant neoplasm of unspecified ovary
CPT/HCPCS: 51702; 71045; 71250; 74176; 80047; 80048; 80076; 82140; 82803; 83605; 84443; 85025; 86850; 86900; 86901; 87040; 87076; 87154; 93005; 93041; 94760; 96365; 96367; 96368; 96375; 96376; 99285; G0378; J1720; J2060; J2543